=== PATIENT | female | born 1980 | race Caucasian/White ===

== ENCOUNTER 2023-07-25 16:04 | Emergency (ER) | payer OTHER, SELFPAY ==
[2023-07-25 16:07] VITALS: BP 173/78; PULSE 109; RESP 20; TEMP 36.2; O2SAT 98; BMI 36.2
[2023-07-25 16:49] LABS: Add Manual Diff / Slide Review NO; Basophils Absolute Auto 100 /uL (0-100); Basophils Percent Auto 0.9 % (0-2); Eosinophils Absolute Auto 0 /uL (0-450); Eosinophils Percent Auto 0.4 % (2-4); Hemoglobin 12.7 g/dL (12.0-16.0); Lymphocytes Absolute Auto 2800 /uL (1100-4500); Lymphocytes Percent Auto 28.3 % (25-40); Mean Corpuscular HGB Conc 33.3 % (30-36); Mean Corpuscular Hemoglobin 26.9 PG (26-34); Mean Corpuscular Volume 80.6 fL (80-100); Monocytes Absolute Auto 700 /uL (0-900); Monocytes Percent Auto 6.5 % (3-14); Neutrophils Absolute Auto 6400 /uL (1500-7000); Neutrophils Percent Auto 63.9 % (50-75); Platelet Count 457 X10^3/uL (150-400); Red Blood Cell Count 4.72 X10^6/uL (4.0-5.2); Red Cell Distribution Width 14.3 % (11.6-14.8)
[2023-07-25 16:51] LABS: Alanine Aminotransferase 68 IU/L (<35); Albumin 3.8 g/dL (3.5-5.0); Albumin Globulin Ratio 1.2 (1.0-2.8); Alkaline Phosphatase 131 U/L (38-126); Aspartate Aminotransferase 41 IU/L (14-36); BUN Creatinine Ratio 24.7 (6-22); Bilirubin Total 0.5 mg/dL (0.2-1.3); Blood Urea Nitrogen 19 mg/dL (7-17); Calcium 9.2 mg/dL (8.4-10.2); Carbon Dioxide 27 mmol/L (22-32); Chloride 102 mmol/L (98-107); Estimated Glomerular Filt Rate > 60 mL/min (>60); Globulin 3.3 g/dL (1.7-4.1); Glucose 110 mg/dL (70-100); HEMOLYSIS < 15 (0-50); Lipase 55 U/L (23-300); Potassium 3.9 mmol/L (3.4-5.1); Sodium 136 mmol/L (137-145); Total Protein 7.1 g/dL (6.3-8.2)
[2023-07-25] MEDS: KETOROLAC 30 MG/ML VIAL 15 MG IV (17:40)
--- NOTE | 2023-07-25 17:43 | DI.CT.S_ITS ---
PROCEDURE: CT ABDOMEN PELVIS W CON INDICATIONS: LUQ pain x 6 days, negative CT on 07/23 at [facility] TECHNIQUE: After the administration of intravenous contrast, axial sections acquired from the lung bases to the pubic symphysis. Coronal and sagittal reformats were performed. For radiation dose reduction, the following was used: automated exposure control, adjustment of mA and/or kV according to patient size. COMPARISON: CT chest angiogram 07/25/2023. FINDINGS: Image quality: Diagnostic. Lower Chest: Please see separately dictated CT chest angio obtained concurrently 07/25/2023 for thoracic findings. ABDOMEN: Liver: No solid mass. Gallbladder: Surgically absent Biliary ducts: No biliary dilation. Pancreas: No ductal dilation. Spleen: Size is within normal limits. Adrenal Glands: No adrenal nodules. Kidneys and Ureters: No hydronephrosis. No solid mass. No complex renal cystic lesion which requires follow up. Stomach and Bowel: Normal colonic caliber, without significant wall thickening. Peritoneum: No abnormal intraperitoneal fluid. No free air. Ventral Wall: Small fat containing periumbilical hernia Abdominal Nodes: No retroperitoneal or mesenteric adenopathy by size criteria. Vessels: Aorta and inferior vena cava are normal in size. PELVIS: Pelvic Organs: Irregular contour of the uterus, possibly related to fibroids. Bladder: Unremarkable. Pelvic Nodes: No enlarged lymph nodes. Miscellaneous: No inguinal hernias are seen. Bones: No acute or suspicious osseous abnormality. IMPRESSION: No acute process in the abdomen or pelvis to explain patient's symptoms. Approved by: Diane Alexis M.D. on 07/25/2023 at 20:07
--- NOTE | 2023-07-25 17:43 | DI.CT.S_ITS ---
PROCEDURE: CT ANGIO CHEST PE PROTOCOL INDICATIONS: LUQ pain, SOB, tachycardic, r/o PE TECHNIQUE: After the administration of intravenous contrast, 2 mm thick sections acquired from the pulmonary apices to the posterior costophrenic angles. 3-dimensional maximum intensity projection (MIP) coronal and sagittal reformats were then acquired through the thorax. For radiation dose reduction, the following was used: automated exposure control, adjustment of mA and/or kV according to patient size. COMPARISON: None. FINDINGS: Image quality: Diagnostic. Pulmonary arteries: Pulmonary arteries are normal in size, and demonstrate no intraluminal filling defects to suggest central pulmonary embolism. Lower Neck: No enlarged lymph nodes. Thyroid: No thyroid nodules which require sonographic follow up, per consensus guidelines. Axillae: No enlarged lymph nodes. Chest Wall: Unremarkable. Bones: Unremarkable. Lungs and Pleura: No pneumothorax or pleural effusions. No consolidation or suspicious nodules. Dependent atelectasis Heart: Heart size is normal. No pericardial effusion. Thoracic Vessels: No aortic aneurysm. Mediastinum and Mariann: No enlarged lymph nodes. Esophagus: No wall thickening. No hiatal hernia. Upper Abdomen: Visualized upper abdomen solid organs and bowel loops appear normal. IMPRESSION: No pulmonary embolus. No acute cardiopulmonary process. Approved by: Diane Alexis M.D. on 07/25/2023 at 19:56
--- NOTE | 2023-07-25 17:45 | ED.ABDPAIN ---
HPI - Abdominal Pain <Elenita Woody PA-C - Last Filed: 07/25/23 19:08> General Chief Complaint: Abdominal Pain Stated Complaint: lt side pain Time Seen by Provider: 07/25/23 19:06 Source: patient Mode of arrival: Ambulatory History of Present Illness HPI narrative: Patient is a 43-year-old female who presents with left upper quadrant pain x6 days. The pain is severe and sharp. It is worse when she takes a deep breath or if she sneezes, coughs or laughs. This is associated with profuse sweating without fever. She endorses nausea when the pain is severe, no vomiting, no diarrhea or constipation. No urinary symptoms. No history of DVT or PE. She does not take any hormones, no calf pain or swelling, no recent travel or immobilization, nonsmoker. Patient was seen at the [facility] ER on July 23. She had labs and a CT scan without any acute findings. She was discharged with pain medicine. The pain has not improved over time. She went to see her primary care today and they referred her to the emergency room. She does report a remote history of pancreatitis. This was after a cholecystectomy where a stone remained in the duct. Patient is currently in the middle of 7 days of p.o. doxycycline for upper respiratory infection. Related Data Home Medications Medication Instructions Recorded Confirmed ALBUTEROL SULFATE (Ventolin / 0 INH ##0 04/28/06 Proventil) Previous Rx's Medication Instructions Recorded dicyclomine 20 mg tablet 20 mg PO TID #60 tabs 07/25/23 famotidine 20 mg tablet (Pepcid) 20 mg PO BID #30 tabs 07/25/23 sucralfate 1 gram tablet (Carafate) 1 g PO BID #60 tabs 07/25/23 Allergies Allergy/AdvReac Type Severity Reaction Status Date / Time clarithromycin Allergy Unknown Verified 07/25/23 17:46 [CLARITHROMYCIN] gluten [GLUTEN] Allergy Unknown Verified 07/25/23 17:46 ibuprofen [IBUPROFEN] Allergy Unknown Verified 07/25/23 17:46 penicillin V [PENICILLIN V] Allergy Unknown HEADACHE Verified 07/25/23 17:46 sulfamethoxazole Allergy Unknown MASSIVE Verified 07/25/23 17:46 [From ] HEADACHES trimethoprim [From ] Allergy Unknown MASSIVE Verified 07/25/23 17:46 HEADACHES zolpidem [From AMBIEN] Allergy Unknown HALLICINATI Verified 07/25/23 17:46 ONS acetaminophen [From VICODIN] AdvReac Unknown PROJECTILE Verified 07/25/23 17:46 VOMITTING codeine [CODEINE] AdvReac Unknown PROJECTILE Verified 07/25/23 17:46 VOMITTING hydrocodone [From VICODIN] AdvReac Unknown PROJECTILE Verified 07/25/23 17:46 VOMITTING Review of Systems <Elenita Woody PA-C - Last Filed: 07/25/23 19:08> Review of Systems ROS Unobtainable: All systems reviewed & are unremarkable except as noted in HPI and below Exam <Elenita Woody PA-C - Last Filed: 07/25/23 19:08> Narrative Exam Narrative: GENERAL: 43 year old patient appears stated age. Well-developed patient, in significant distress. Writhing in pain, tachycardic, tachypneic. NEURO: AOx3. HEAD: Atraumatic. Normocephalic. EYES: Pupils equal round and reactive. Extraocular motions intact. No scleral icterus. No injection or drainage. ENT: Nose without bleeding or purulent drainage. Airway patent. NECK: Trachea midline. Non tender CARDIOVASCULAR: Tachycardic rate and normal rhythm without murmurs, gallops, or rubs. RESPIRATORY: Clear to auscultation. Breath sounds equal bilaterally. No wheezes, rales, or rhonchi. GASTROINTESTINAL: Abdomen soft, exquisite tenderness over left upper quadrant. Bilateral lower quadrants and right upper quadrant nontender. No significant distention. No skin rashes or ecchymosis. EXTREMITIES: No edema or joint tenderness. Calve are nontender and supple. There is no tenderness over the deep venous system in the lower extremities. SKIN: No rash or erythema of visible areas Initial Vital Signs Initial Vital Signs: Vital Signs Temperature 97.1 F L 07/25/23 16:07 Pulse Rate 109 H 07/25/23 16:07 Respiratory Rate 20 07/25/23 16:07 Blood Pressure 173/78 H 07/25/23 16:07 Pulse Oximetry 98 07/25/23 16:07 Oxygen Delivery Method Room Air 07/25/23 16:07 <Ellie Costa MD - Last Filed: 07/25/23 21:48> Initial Vital Signs Initial Vital Signs: Vital Signs Temperature 97.1 F L 07/25/23 16:07 Pulse Rate 109 H 07/25/23 16:07 Respiratory Rate 20 07/25/23 16:07 Blood Pressure 173/78 H 07/25/23 16:07 Pulse Oximetry 98 07/25/23 16:07 Oxygen Delivery Method Room Air 07/25/23 16:07 Scores <Elenita Woody PA-C - Last Filed: 07/25/23 19:08> Wells' Criteria for PE Clinical signs and symptoms of DVT: Yes PE is #1 Dx or equally likely: Yes Heart rate > 100: Yes Immobilization at least 3 days or surg in previous 4 weeks: No History of PE or DVT: No Hemoptysis: No Malignancy w/Treatment within 6 months or palliative: No Wells' PE Score total: 7.5 <Ellie Costa MD - Last Filed: 07/25/23 21:48> Wells' Criteria for PE Wells' PE Score total: 7.5 Course <Elenita Woody PA-C - Last Filed: 07/25/23 19:08> Orders Ordered: ED Orders 07/25/23 16:25 BNP [NT-proBNP (BNP-Adult 18+)] Stat Complete Blood Count AUTO DIFF Stat Comprehensive Metabolic Panel Stat Lipase Stat Troponin & CK Cardiac Panel Stat 07/25/23 17:43 CT abdomen pelvis w con Stat CT angio chest PE protocol Stat Discontinued Medications Sodium Chloride (Normal Saline 0.9%) 1,000 mls @ 1,000 mls/hr IV BOLUS ONE Stop: 07/25/23 18:42 Last Infusion: 07/25/23 19:30 Dose: Infused Documented By: Admin: 07/25/23 17:49 Dose: 1,000 mls/hr Documented By: HELENA Ketorolac Tromethamine (Ketorolac 30 Mg/Ml Vial) 15 mg IV NOW ONE Stop: 07/25/23 17:31 Last Admin: 07/25/23 17:40 Dose: 15 mg Documented By: HELENA Ondansetron HCl (Ondansetron 4 Mg/2 Ml Inj) 4 mg IV NOW PRN PRN Reason: Nausea And Vomiting Ondansetron HCl (Ondansetron 4 Mg Odt) 4 mg PO NOW PRN PRN Reason: Nausea And Vomiting Vital Signs Vital signs: Vital Signs - 8 hr 07/25/23 16:07 07/25/23 18:16 07/25/23 20:37 Temperature 97.1 F L Pulse Rate 109 H 83 85 Respiratory Rate 20 14 16 Blood Pressure 173/78 H 127/59 L 134/76 Pulse Oximetry 98 97 96 Oxygen Delivery Method Room Air Room Air <Ellie Costa MD - Last Filed: 07/25/23 21:48> Orders Ordered: ED Orders 07/25/23 16:25 BNP [NT-proBNP (BNP-Adult 18+)] Stat Complete Blood Count AUTO DIFF Stat Comprehensive Metabolic Panel Stat Lipase Stat Troponin & CK Cardiac Panel Stat 07/25/23 17:43 CT abdomen pelvis w con Stat CT angio chest PE protocol Stat Discontinued Medications Sodium Chloride (Normal Saline 0.9%) 1,000 mls @ 1,000 mls/hr IV BOLUS ONE Stop: 07/25/23 18:42 Last Infusion: 07/25/23 19:30 Dose: Infused Documented By: Admin: 07/25/23 17:49 Dose: 1,000 mls/hr Documented By: HELENA Ketorolac Tromethamine (Ketorolac 30 Mg/Ml Vial) 15 mg IV NOW ONE Stop: 07/25/23 17:31 Last Admin: 07/25/23 17:40 Dose: 15 mg Documented By: HELENA Ondansetron HCl (Ondansetron 4 Mg/2 Ml Inj) 4 mg IV NOW PRN PRN Reason: Nausea And Vomiting Ondansetron HCl (Ondansetron 4 Mg Odt) 4 mg PO NOW PRN PRN Reason: Nausea And Vomiting Vital Signs Vital signs: Vital Signs - 8 hr 07/25/23 16:07 07/25/23 18:16 07/25/23 20:37 Temperature 97.1 F L Pulse Rate 109 H 83 85 Respiratory Rate 20 14 16 Blood Pressure 173/78 H 127/59 L 134/76 Pulse Oximetry 98 97 96 Oxygen Delivery Method Room Air Room Air MDM - Abdominal Pain <Elenita Woody PA-C - Last Filed: 07/25/23 19:08> Lab Data 07/25/23 16:25 07/25/23 16:25 Labs: Lab Results 07/25/23 Range/Units 16:25 WBC 10.0 (4.5-11.0) X10^3/uL RBC 4.72 (4.0-5.2) X10^6/uL Hgb 12.7 (12.0-16.0) g/dL Hct 38.0 (36-46) % MCV 80.6 (80-100) fL MCH 26.9 (26-34) PG MCHC 33.3 (30-36) % RDW 14.3 (11.6-14.8) % Plt Count 457 H (150-400) X10^3/uL Neut % (Auto) 63.9 (50-75) % Lymph % (Auto) 28.3 (25-40) % [place] % (Auto) 6.5 (3-14) % Eos % (Auto) 0.4 L (2-4) % Baso % (Auto) 0.9 (0-2) % Neut # (Auto) 6400 (6976-1995) /uL Lymph # (Auto) 2800 (5520-8149) /uL [place] # (Auto) 700 (0-900) /uL Eos # (Auto) 0 (0-450) /uL Baso # (Auto) 100 (0-100) /uL Sodium 136 L (137-145) mmol/L Potassium 3.9 (3.4-5.1) mmol/L Chloride 102 (98-107) mmol/L Carbon Dioxide 27 (22-32) mmol/L BUN 19 H (7-17) mg/dL Creatinine 0.77 (0.52-1.04) mg/dL Estimated GFR > 60 (>60) mL/min BUN/Creatinine Ratio 24.7 H (6-22) Glucose 110 H (70-100) mg/dL Calcium 9.2 (8.4-10.2) mg/dL Total Bilirubin 0.5 (0.2-1.3) mg/dL AST 41 H (14-36) IU/L ALT 68 H (<35) IU/L Alkaline Phosphatase 131 H (38-126) U/L Total Creatine Kinase 37 (30-135) U/L Troponin I < 0.012 (0.01-0.034) ng/mL NT-Pro-B Natriuret Pep 45 (<125) pg/mL Total Protein 7.1 (6.3-8.2) g/dL Albumin 3.8 (3.5-5.0) g/dL Globulin 3.3 (1.7-4.1) g/dL Albumin/Globulin Ratio 1.2 (1.0-2.8) Lipase 55 (23-300) U/L Point of care testing: Point of Care Testing Test Results Negative Urine Dip Bedside Urine Glucose Negative Bedside Urine Bilirubin - Negative Bedside Urine Ketone - Negative Urine Specific [place] 1.020 Bedside Urine Occult Blood - Negative Bedside Urine pH 6.0 Bedside Urine Protein - Negative Bedside Urine Urobilinogen - Negative Bedside Urine Nitrite - Negative Bedside Urine Leukocytes - Negative Esterase MDM Narrative Medical decision making narrative: Multiple etiologies for patient's symptoms considered including, but not limited to: PE, colitis, pneumonia, pancreatitis, diverticulitis, splenic injury/abnormality, referred pain from other abdominal source, pyelonephritis Patient in significant pain. Patient is here with her daughter and she will need to drive her home, so declines opiate pain medications. Given Toradol and IV fluids in the emergency room. Patient remains tachycardic, tachypneic, diaphoretic and very uncomfortable during our visit. Given a recent unremarkable abd/pelvis CT scan with persistent symptoms and the vital sign changes I see before me, I can not fully exclude PE. Prior Charts reviewed: ED visit on 07/23/23 at [facility]; labs without significant abnl, mild leukocytosis. CT abd/pelvis without significant abnl, no diverticulitis or nephrolithiasis. Labs reviewed and interpreted by myself: from ED visit on 07/23/23 and today Consultations: Discussed case with Dr. Schwartz, who agrees with plan to obtain CTA chest and CT abd/pelvis. Labs show no clinically significant abnormality including a resolved leukocytosis, a normal troponin, normal lipase, normal UA. Mild elevation of LFTs noted with normal bilirubin. CTA chest and CT abdomen/pelvis interpretation pending at time of end of shift signout to Dr. Costa, who will continue care. <Ellie Costa MD - Last Filed: 07/25/23 21:48> Lab Data Labs: Lab Results 07/25/23 Range/Units 16:25 WBC 10.0 (4.5-11.0) X10^3/uL RBC 4.72 (4.0-5.2) X10^6/uL Hgb 12.7 (12.0-16.0) g/dL Hct 38.0 (36-46) % MCV 80.6 (80-100) fL MCH 26.9 (26-34) PG MCHC 33.3 (30-36) % RDW 14.3 (11.6-14.8) % Plt Count 457 H (150-400) X10^3/uL Neut % (Auto) 63.9 (50-75) % Lymph % (Auto) 28.3 (25-40) % [place] % (Auto) 6.5 (3-14) % Eos % (Auto) 0.4 L (2-4) % Baso % (Auto) 0.9 (0-2) % Neut # (Auto) 6400 (6061-6707) /uL Lymph # (Auto) 2800 (5917-1987) /uL [place] # (Auto) 700 (0-900) /uL Eos # (Auto) 0 (0-450) /uL Baso # (Auto) 100 (0-100) /uL Sodium 136 L (137-145) mmol/L Potassium 3.9 (3.4-5.1) mmol/L Chloride 102 (98-107) mmol/L Carbon Dioxide 27 (22-32) mmol/L BUN 19 H (7-17) mg/dL Creatinine 0.77 (0.52-1.04) mg/dL Estimated GFR > 60 (>60) mL/min BUN/Creatinine Ratio 24.7 H (6-22) Glucose 110 H (70-100) mg/dL Calcium 9.2 (8.4-10.2) mg/dL Total Bilirubin 0.5 (0.2-1.3) mg/dL AST 41 H (14-36) IU/L ALT 68 H (<35) IU/L Alkaline Phosphatase 131 H (38-126) U/L Total Creatine Kinase 37 (30-135) U/L Troponin I < 0.012 (0.01-0.034) ng/mL NT-Pro-B Natriuret Pep 45 (<125) pg/mL Total Protein 7.1 (6.3-8.2) g/dL Albumin 3.8 (3.5-5.0) g/dL Globulin 3.3 (1.7-4.1) g/dL Albumin/Globulin Ratio 1.2 (1.0-2.8) Lipase 55 (23-300) U/L Point of care testing: Point of Care Testing Test Results Negative Urine Dip Bedside Urine Glucose Negative Bedside Urine Bilirubin - Negative Bedside Urine Ketone - Negative Urine Specific [place] 1.020 Bedside Urine Occult Blood - Negative Bedside Urine pH 6.0 Bedside Urine Protein - Negative Bedside Urine Urobilinogen - Negative Bedside Urine Nitrite - Negative Bedside Urine Leukocytes - Negative Esterase MDM Narrative Medical decision making narrative: Multiple etiologies for patient's symptoms considered including, but not limited to: PE, colitis, pneumonia, pancreatitis, diverticulitis, splenic injury/abnormality, referred pain from other abdominal source, pyelonephritis Patient in significant pain. Patient is here with her daughter and she will need to drive her home, so declines opiate pain medications. Given Toradol and IV fluids in the emergency room. Patient remains tachycardic, tachypneic, diaphoretic and very uncomfortable during our visit. Given a recent unremarkable abd/pelvis CT scan with persistent symptoms and the vital sign changes I see before me, I can not fully exclude PE. Prior Charts reviewed: ED visit on 07/23/23 at [facility]; labs without significant abnl, mild leukocytosis. CT abd/pelvis without significant abnl, no diverticulitis or nephrolithiasis. Labs reviewed and interpreted by myself: from ED visit on 07/23/23 and today Consultations: Discussed case with Dr. Schwartz, who agrees with plan to obtain CTA chest and CT abd/pelvis. Labs show no clinically significant abnormality including a resolved leukocytosis, a normal troponin, normal lipase, normal UA. Mild elevation of LFTs noted with normal bilirubin. CTA chest and CT abdomen/pelvis interpretation pending at time of end of shift signout to Dr. Costa, who will continue care. Igor -CT angio and CT of the abdomen and pelvis are both negative for any acute pathology, no explanation for symptoms identified. Records from [facility] also reviewed from 07/23, patient had negative workup, discharged with Percocet for pain. I explained the results of all lab and imaging findings with the patient, I explained there was no obvious cause for her pain in the ER, and referred patient to General surgery for further discussion, if patient has upper quadrant pain that is severely she may benefit from endoscopy, this could be arranged to General surgery. In the meantime patient was counseled to avoid NSAIDs, alcohol, caffeine, acidic foods. Pepcid, Bentyl, Carafate sent to pharmacy of choice. Discharge Plan Departure Patient Disposition: Home Clinical Impression: Abdominal pain Instructions: DI for Abdominal Pain-Adult Prescriptions: New sucralfate [Carafate] 1 gram tablet 1 g PO BID Qty: 60 0RF dicyclomine 20 mg tablet 20 mg PO TID Qty: 60 0RF famotidine [Pepcid] 20 mg tablet 20 mg PO BID Qty: 30 0RF No Action ALBUTEROL SULFATE (Ventolin / Proventil) 0 INH Qty: 0 Referrals: Geoff Carrillo MD [Physician] - Provider,Kemi CARPENTER [Primary Care Provider] - Stand Alone Forms: Patient Portal/API
[2023-07-25] MEDS: SODIUM CHLORIDE 0.9% 1,000 ML 1000 ML IV (17:49)
[2023-07-25 17:59] LABS: Creatine Kinase 37 U/L (30-135)
[2023-07-25 18:12] LABS: NT-proBNP (BNP-Adult 18+) 45 pg/mL (<125); Troponin I < 0.012 ng/mL (0.01-0.034)
[2023-07-25 18:16] VITALS: BP 127/59; PULSE 83; RESP 14; O2SAT 97
[2023-07-25 20:37] VITALS: BP 134/76; PULSE 85; RESP 16; O2SAT 96
== END 2023-07-25 20:41 | disposition home or self-care (01) ==
PROVIDERS: Emergency Medicine; Physician Assistant; Emergency Provider Emergency Medicine
DX: R10.12 Left upper quadrant pain (principal); R00.0 Tachycardia, unspecified
CPT/HCPCS: 36415; 71275; 74177; 80053; 81003; 81025; 82550; 83690; 83880; 84484; 85025; 96361; 96374; 99284; J1885

== ENCOUNTER 2023-08-08 16:33 | Emergency (ER) | payer OTHER, SELFPAY ==
[2023-08-08 16:47] VITALS: BP 138/78; PULSE 99; RESP 16; TEMP 36.9; O2SAT 98; BMI 36.0
--- NOTE | 2023-08-08 17:26 | DI.RAD.S_ITS ---
PROCEDURE: XR CHEST 1V INDICATIONS: Shortness of breath TECHNIQUE: One view of the chest was acquired. COMPARISON: None. FINDINGS: Surgical changes and devices: None. Lungs and pleura: Lungs are clear. No pleural effusions or pneumothorax. Mediastinum: Mediastinal contours appear normal. Heart size is normal. Bones and chest wall: No suspicious bony lesions. Overlying soft tissues appear unremarkable. IMPRESSION: No acute cardiopulmonary pathology. Dictated by: Anjum Brizuela M.D. on 08/08/2023 at 18:07 Approved by: Anjum Brizuela M.D. on 08/08/2023 at 18:07
--- NOTE | 2023-08-08 19:12 | DI.CT.S_ITS ---
PROCEDURE: CT CHEST W CON INDICATIONS: Left parapneumonic chest pain TECHNIQUE: After the administration of intravenous contrast, 5 mm thick sections acquired from the pulmonary apices to the posterior costophrenic angles. 1 mm axial lung, 5 mm thick coronal and sagittal reformats and 7 mm axial MIP were acquired. For radiation dose reduction, the following was used: automated exposure control, adjustment of mA and/or kV according to patient size. COMPARISON: [facility], CT, CT ANGIO CHEST PE PROTOCOL, 07/25/2023, 18:01. FINDINGS: Image quality: Diagnostic. Lower Neck: No enlarged lymph nodes. Thyroid: No thyroid nodules which require sonographic follow up, per consensus guidelines. Axillae: No enlarged lymph nodes. Chest Wall: Unremarkable. Bones: Acute to subacute appearing minimally displaced left posterior lateral 4th through 7th rib fractures are seen with mild surrounding callus formation. Lungs and Pleura: No pneumothorax or pleural effusions. No consolidation or suspicious nodules. Heart: Heart size is normal. No pericardial effusion. Thoracic Vessels: The aorta and pulmonary arteries demonstrate normal size. Mediastinum and Mariann: No enlarged lymph nodes. Esophagus: No wall thickening. No hiatal hernia. Upper Abdomen: Visualized upper abdomen solid organs and bowel loops appear normal. Gallbladder is surgically absent. IMPRESSION: 1. Subacute appearing minimally displaced left posterior lateral 3rd through 7th rib fractures with callus formation. 2. Bilateral lungs are clear. No pleural effusion or pneumothorax. Airway is patent. 3. No mediastinal hematoma. No mediastinal or hilar lymphadenopathy. Dictated by: Anjum Brizuela M.D. on 08/08/2023 at 19:49 Approved by: Anjum Brizuela M.D. on 08/08/2023 at 19:52
--- NOTE | 2023-08-08 19:13 | ED_ITS ---
HPI - General Adult General Chief complaint: Shortness of Breath/Dyspnea Stated complaint: lung pain, difficulty breathing Time Seen by Provider: 08/08/23 18:12 Source: patient Mode of arrival: Family Vehicle History of Present Illness HPI narrative: 43-year-old woman who presents with continued persistent left-sided chest pain. She states that it started in the lower mid axillary line and has progressed up into the axilla and toward the neck and is getting worse. Medical history is for mild asthma, ADHD. The timeline of her symptoms is as follows: In April she was diagnosed with a bacterial pneumonia and admitted to [facility] for 5 days. Completed a course of antibiotics and seemingly improved In May she again developed coughing and fever was diagnosed with some type of virus that required droplet precaution during her 2nd 5 day stay for viral pneumonia complicated by bacterial infection. She continues to have significant fatigue, left-sided chest pain, she will have episodes where she all of a sudden breaks out into a sweat, she does not describe significant night sweats. She continues to have exertional dyspnea. She was seen her primary care physician at the [facility] at the end of June she had a CT scan of the abdomen and pelvis that was completely unremarkable. She had a CT chest angiogram that is specifically showed no lung parenchymal abnormalities, no pneumothorax, no pleural effusions, no pulmonary embolus, no mediastinal adenopathy, no chest wall abnormalities, no bony metastatic lesions, and no pericardial effusion. In follow up with her primary care physician she was referred to Gastroenterology and General surgery. She saw a general surgeon on [facility] yesterday who recommended repeating a CT scan of her chest and felt that this was a primary pulmonary problem. He told her to go to the emergency department if she was still having pain or dyspnea. She reports this evening reporting both. Related Data Home Medications Medication Instructions Recorded Confirmed ALBUTEROL SULFATE (Ventolin / 0 INH ##0 04/28/06 Proventil) Previous Rx's Medication Instructions Recorded dicyclomine 20 mg tablet 20 mg PO TID #60 tabs 07/25/23 famotidine 20 mg tablet (Pepcid) 20 mg PO BID #30 tabs 07/25/23 sucralfate 1 gram tablet (Carafate) 1 g PO BID #60 tabs 07/25/23 oxycodone-acetaminophen 5 mg-325 1 tab PO Q6H PRN pain #14 tabs 08/08/23 mg tablet oxycodone-acetaminophen 5 mg-325 1 tab PO Q6H PRN pain #14 tabs 08/08/23 mg tablet Allergies Allergy/AdvReac Type Severity Reaction Status Date / Time clarithromycin Allergy Unknown Verified 07/25/23 17:46 [CLARITHROMYCIN] gluten [GLUTEN] Allergy Unknown Verified 07/25/23 17:46 ibuprofen [IBUPROFEN] Allergy Unknown Verified 07/25/23 17:46 penicillin V [PENICILLIN V] Allergy Unknown HEADACHE Verified 07/25/23 17:46 sulfamethoxazole Allergy Unknown MASSIVE Verified 07/25/23 17:46 [From SEPTRA] HEADACHES trimethoprim [From SEPTRA] Allergy Unknown MASSIVE Verified 07/25/23 17:46 HEADACHES zolpidem [From AMBIEN] Allergy Unknown HALLICINATI Verified 07/25/23 17:46 ONS acetaminophen [From VICODIN] AdvReac Unknown PROJECTILE Verified 07/25/23 17:46 VOMITTING codeine [CODEINE] AdvReac Unknown PROJECTILE Verified 07/25/23 17:46 VOMITTING hydrocodone [From VICODIN] AdvReac Unknown PROJECTILE Verified 07/25/23 17:46 VOMITTING Review of Systems Review of Systems Narrative: Pertinent positive and negative findings as per HPI Patient History Medical History (Updated 08/08/23 @ 22:03 by Amie Barillas MD) Asthma Exam Initial Vital Signs Initial Vital Signs: Vital Signs Temperature 98.5 F 08/08/23 16:47 Pulse Rate 99 H 08/08/23 16:47 Respiratory Rate 16 08/08/23 16:47 Blood Pressure 138/78 08/08/23 16:47 Pulse Oximetry 98 08/08/23 16:47 Oxygen Delivery Method Room Air 08/08/23 16:47 General: Healthy appearing, in mild amount of pain but able to give a complete and coherent history. Well-nourished well-developed HEENT: Moist mucous membranes, normal sclera with reactive pupils, Neck: No JVD, supple Respiratory: Lungs are clear to auscultation, no wheezing no rales no rhonchi. Full and symmetrical air movement. She is reproducible pain with palpation along her left lateral ribs. No bruising or contusion over her thorax Cardiac: Regular rate and rhythm no murmurs no bruits Abdomen: Soft, nontender, good bowel tones, no flank pain Skin: Warm and dry, no rashes Neurologic: Grossly neurologically intact with no obvious asymmetries or abnormalities Extremities: No trauma, well perfused Psych: Cooperative, appropriate insight and affect Course Orders Ordered: ED Orders 08/08/23 17:26 XR chest 1V Stat EKG-12 Lead Stat Measure peak expiratory flow ONCE RT Consult Eval and Treat NOW 08/08/23 19:12 CT chest w con Stat 08/08/23 19:30 CRP [C-Reactive Protein Quant] Stat Complete Blood Count AUTO DIFF Stat Comprehensive Metabolic Panel Stat Erythrocyte Sedimentation Rate Stat Lactate (Lactic Acid) Stat NT-proBNP (BNP-Adult 18+) Stat Prothrombin Time INR Stat Troponin I Stat Discontinued Medications Dexamethasone (Dexamethasone 10 Mg/Ml Vial) 10 mg IV NOW ONE Stop: 08/08/23 19:14 Last Admin: 08/08/23 19:48 Dose: 10 mg Documented By: ASHWIN Ketorolac Tromethamine (Ketorolac 30 Mg/Ml Vial) 15 mg IV NOW ONE Stop: 08/08/23 19:14 Last Admin: 08/08/23 19:48 Dose: 15 mg Documented By: ASHWIN Vital Signs Vital signs: Vital Signs - 8 hr 08/08/23 16:47 Temperature 98.5 F Pulse Rate 99 H Respiratory Rate 16 Blood Pressure 138/78 Pulse Oximetry 98 Oxygen Delivery Method Room Air Medical Decision Making Lab Data 08/08/23 19:30 08/08/23 19:30 Labs: Lab Results 08/08/23 Range/Units 19:30 WBC 6.8 (4.5-11.0) X10^3/uL RBC 4.60 (4.0-5.2) X10^6/uL Hgb 12.5 (12.0-16.0) g/dL Hct 37.1 (36-46) % MCV 80.6 (80-100) fL MCH 27.1 (26-34) PG MCHC 33.6 (30-36) % RDW 14.4 (11.6-14.8) % Plt Count 406 H (150-400) X10^3/uL Neut % (Auto) 54.7 (50-75) % Lymph % (Auto) 35.2 (25-40) % [place] % (Auto) 9.0 (3-14) % Eos % (Auto) 0.3 L (2-4) % Baso % (Auto) 0.8 (0-2) % Neut # (Auto) 3700 (7833-8067) /uL Lymph # (Auto) 2400 (5904-5273) /uL [place] # (Auto) 600 (0-900) /uL Eos # (Auto) 0 (0-450) /uL Baso # (Auto) 100 (0-100) /uL ESR 20 (0-20) MM/HR PT 11.4 (9.4-12.5) SECONDS INR 1.0 (0.9-1.3) Sodium 137 (137-145) mmol/L Potassium 4.0 (3.4-5.1) mmol/L Chloride 103 (98-107) mmol/L Carbon Dioxide 24 (22-32) mmol/L BUN 19 H (7-17) mg/dL Creatinine 0.74 (0.52-1.04) mg/dL Estimated GFR > 60 (>60) mL/min BUN/Creatinine Ratio 25.7 H (6-22) Glucose 86 (70-100) mg/dL Lactate 1.1 (0.7-2.1) mmol/L Calcium 9.2 (8.4-10.2) mg/dL Total Bilirubin 0.4 (0.2-1.3) mg/dL AST 21 (14-36) IU/L ALT 22 (<35) IU/L Alkaline Phosphatase 90 (38-126) U/L Troponin I < 0.012 (0.01-0.034) ng/mL C-Reactive Protein 0.7 (<1.0) mg/dL NT-Pro-B Natriuret Pep < 20 (<125) pg/mL Total Protein 7.3 (6.3-8.2) g/dL Albumin 4.0 (3.5-5.0) g/dL Globulin 3.3 (1.7-4.1) g/dL Albumin/Globulin Ratio 1.2 (1.0-2.8) MDM Narrative Medical decision making narrative: CC: Left-sided chest pain worsening. Complicating co-morbidities:Hospitalization for pneumonia April and May of this year Data collected from: patient Medical records reviewed: Patient's detailed timeline extraordinarily helpful. Imaging studies CT of the abdomen and pelvis as well as CT angiogram of the chest that were both done and unremarkable on July 25 of this year. Differential considered: Pleurisy, pulmonary infarct, recurrent pneumonia, pneumothorax, referred pain from her abdomen, Exam documented above, pertinent findings include: Tenderness over the left lateral ribs reproducible with palpation. No other significant abnormalities. Lab Test results independently reviewed as above. Pertinent findings: CBC is unremarkable, platelets slightly elevated at 406 Chemistries are reassuring with no electrolyte, renal or liver abnormalities Troponin is undetectable ProBNP is low suggesting absence of heart failure C-reactive protein is low suggesting absence of significant chronic or active infection Imaging studies independently reviewed: CT scan of the chest with contrast today shows subacute minimally displaced left posterior lateral 3 through 7th rib fractures with callus formation. No acute cardiopulmonary abnormalities. No pulmonary infarct. No recurrent infection Consultations: Outpatient general surgery with appointment yesterday, he was concerned with clinical exam finding and recommended CT of the chest if her breathing worsened Treatments: Toradol, Decadron Re-evaluations: Patient is feeling better after Toradol and dexamethasone Discussion: 43-year-old woman with CT scan showing posterior left ribs 3 through 7 with healing fractures. This absolutely corresponds with her area of pain. Presumably the cough from her recent upper respiratory infections were the source she reports no trauma. She is dramatically relieved to know that there is an explanation, that she does not have cancer and that she will improve. Reviewed the rest of the studies. Also reviewed anticipated course of resolution for rib fractures. Discussed pain management, please see notes below for details. Questions are answered and she is safe for discharge Discharge Plan Departure Patient Disposition: Home Clinical Impression: Fracture, ribs Qualifiers: Encounter type: initial encounter Fracture type: closed Laterality: left Q ualified Code(s): S22.42XA - Multiple fractures of ribs, left side, initial encounter for closed fracture Instructions: DI for Rib Fracture Activity Restrictions/Additional Instructions: Thank you for coming in today I am glad to let you know that you are not crazy, you do not have cancer, you are not dying, you do not have areas of your lung or blood clots in your lung, you do not have any recurrent pneumonia You apparently were coughing hard enough that you broke 5 ribs. Ribs 3, 4, 5, 6, 7 on the left side all where your hurting show healing nondisplaced fractures. Using 400 mg of ibuprofen (2 [id number] pills) and 1 Tylenol every 6 hours can be very helpful in controlling pain. For severe pain you can use 400 mg of ibuprofen and 1 Percocet. Percocet is a narcotic and you should not take it while working or driving. He will also cause constipation so please make sure that you miner pick a stool softener while you are picking up this medication. Rib fractures we will typically take 6-8 weeks to heal completely. If you find that you are getting worse or develop any new symptoms, please feel free to return to the emergency department for further evaluation. Prescriptions: New oxycodone-acetaminophen 5-325 mg tablet 1 tab PO Q6H PRN (Reason: pain) Qty: 14 0RF oxycodone-acetaminophen 5-325 mg tablet 1 tab PO Q6H PRN (Reason: pain) Qty: 14 0RF No Action ALBUTEROL SULFATE (Ventolin / Proventil) 0 INH Qty: 0 sucralfate [Carafate] 1 gram tablet 1 g PO BID Qty: 60 0RF dicyclomine 20 mg tablet 20 mg PO TID Qty: 60 0RF famotidine [Pepcid] 20 mg tablet 20 mg PO BID Qty: 30 0RF Referrals: Nathaniel Rahman MD [Primary Care Provider] - Stand Alone Forms: Patient Portal/API
[2023-08-08 19:36] LABS: Add Manual Diff / Slide Review NO; Basophils Absolute Auto 100 /uL (0-100); Basophils Percent Auto 0.8 % (0-2); Eosinophils Absolute Auto 0 /uL (0-450); Eosinophils Percent Auto 0.3 % (2-4); Hematocrit 37.1 % (36-46); Hemoglobin 12.5 g/dL (12.0-16.0); Lymphocytes Absolute Auto 2400 /uL (1100-4500); Lymphocytes Percent Auto 35.2 % (25-40); Mean Corpuscular HGB Conc 33.6 % (30-36); Mean Corpuscular Hemoglobin 27.1 PG (26-34); Mean Corpuscular Volume 80.6 fL (80-100); Monocytes Absolute Auto 600 /uL (0-900); Neutrophils Absolute Auto 3700 /uL (1500-7000); Neutrophils Percent Auto 54.7 % (50-75); Platelet Count 406 X10^3/uL (150-400); Red Cell Distribution Width 14.4 % (11.6-14.8); White Blood Cell Count 6.8 X10^3/uL (4.5-11.0)
[2023-08-08 19:45] LABS: Prothrombin Time 11.4 SECONDS (9.4-12.5)
[2023-08-08] MEDS: DEXAMETHASONE 10 MG/ML VIAL IV (19:48)
[2023-08-08] MEDS: KETOROLAC 30 MG/ML VIAL 15 MG IV (19:48)
[2023-08-08 19:51] LABS: Lactate (Lactic Acid) 1.1 mmol/L (0.7-2.1)
[2023-08-08 19:52] LABS: Alanine Aminotransferase 22 IU/L (<35); Albumin Globulin Ratio 1.2 (1.0-2.8); Alkaline Phosphatase 90 U/L (38-126); Aspartate Aminotransferase 21 IU/L (14-36); BUN Creatinine Ratio 25.7 (6-22); Bilirubin Total 0.4 mg/dL (0.2-1.3); Blood Urea Nitrogen 19 mg/dL (7-17); Calcium 9.2 mg/dL (8.4-10.2); Carbon Dioxide 24 mmol/L (22-32); Chloride 103 mmol/L (98-107); Estimated Glomerular Filt Rate > 60 mL/min (>60); Globulin 3.3 g/dL (1.7-4.1); Glucose 86 mg/dL (70-100); HEMOLYSIS < 15 (0-50); Sodium 137 mmol/L (137-145); Total Protein 7.3 g/dL (6.3-8.2)
[2023-08-08 20:04] LABS: NT-proBNP (BNP-Adult 18+) < 20 pg/mL (<125); Troponin I < 0.012 ng/mL (0.01-0.034)
[2023-08-08 20:08] LABS: Erythrocyte Sedimentation Rate 20 MM/HR (0-20)
[2023-08-08 20:14] LABS: C-Reactive Protein Quant 0.7 mg/dL (<1.0)
[2023-08-08 22:11] VITALS: PULSE 87; RESP 19; O2SAT 95
[2023-08-08 22:12] VITALS: BP 145/82; PULSE 88; RESP 18; O2SAT 97
[2023-08-08 22:30] VITALS: BP 145/82; PULSE 92; RESP 22; O2SAT 95
[2023-08-08] MEDS: OXYCODONE/APAP 5/325 PREPACK 1 BOTTLE MISC (22:34)
== END 2023-08-08 22:47 | disposition home or self-care (01) ==
PROVIDERS: Emergency Medicine; Emergency Provider Emergency Medicine; PCP Surgery
DX: S22.42XA Multiple fractures of ribs, left side, initial encounter for closed fracture (principal)
CPT/HCPCS: 36415; 71045; 71260; 80053; 83605; 83880; 84484; 85025; 85610; 85651; 86140; 96374; 96375; 99284; J1100; J1885

== ENCOUNTER 2023-08-19 13:07 | Emergency (ER) | payer OTHER, SELFPAY ==
[2023-08-19 13:12] VITALS: BP 146/81; PULSE 99; RESP 18; TEMP 36.5; O2SAT 96; BMI 36.2
--- NOTE | 2023-08-19 13:59 | DI.RAD.S_ITS ---
PROCEDURE: XR CHEST 2V INDICATIONS: cough, prior L rib fx 2-7 TECHNIQUE: 2 views of the chest were acquired. COMPARISON: [facility], CR, XR CHEST 1V, 08/08/2023, 17:54. [facility], CT, CT CHEST W CON, 08/08/2023, 19:40. FINDINGS: Surgical changes and devices: None. Lungs and pleura: An incomplete inspiratory result is noted, causing a crowded appearance to the lung markings. No focal infiltrates are seen. No pneumothorax or significant pleural effusions are seen. Mediastinum: Mediastinal contours are normal. Heart size is normal. Bones and chest wall: Several healing left-sided rib fractures are again seen. No suspicious bony abnormalities. Soft tissues appear unremarkable. IMPRESSION: Healing left-sided rib fractures are again seen. No focal infiltrates are seen. No pneumothorax is seen. If it would be helpful for clinical management decision making in this patient with this given history, please consider a dedicated chest CT with IV contrast. Dictated by: Ismael Keith M.D. on 08/19/2023 at 14:57 Approved by: Ismael Keith M.D. on 08/19/2023 at 14:58
[2023-08-19] MEDS: LIDOCAINE 5% PATCH 1 EACH TOP (14:11)
--- NOTE | 2023-08-19 14:24 | PC.NURSE ---
Notified provider that patient symptoms appeared to worsen with light touch on the skin when applying lidocaine patch.
[2023-08-19] MEDS: IBUPROFEN 400 MG TABLET 600 MG PO (15:12)
[2023-08-19] MEDS: OXYCODONE/ACETAMINOPHEN 5/325 TABLET 1 TAB PO (15:12)
--- NOTE | 2023-08-19 16:16 | ED_ITS ---
HPI - Recheck/Abnormal Lab/Rx <Lara Mark PA-C - Last Filed: 08/19/23 18:33> General Chief Complaint: Recheck/Abnormal Lab/Rx Stated Complaint: 5 broken ribs, coughing fit lots of pain Time Seen by Provider: 08/19/23 13:16 History of Present Illness HPI narrative: 43-year-old female here today for left-sided rib pain that she believes is associated with previously diagnosed rib fractures of ribs 3 through 7. She had 2 different cases of pneumonia in April and May which resulted in her being hospitalized. After those episode she continued to have coughing spells and respiratory difficulties for which she was seen in various locations. She ultimately ended up being seen here on 08/[address] scan of her chest done which showed subacute fractures of ribs 3 through 7. This was presumed to be from all her coughing spells and since her main complaint at that time was ongoing left-sided chest wall pain she was prescribed 14 tablets of Percocet to help with the pain. Patient states that she was taking Percocet and Motrin in the morning in the evening and this was really helping. States that her cough and respiratory symptoms have been gone for several weeks now but in the middle of the night a few days ago she had a coughing spell that caused her to injure her left side again. States that the pain has been unbearable since then and she can barely breathe, move, or even swallow due to the significant pain. It is in the same location as her rib fractures so she thinks she re-injured the ribs again. She went to urgent care and they gave her a shot of Toradol which did not help. She also has a prescription of tramadol from the [facility] that she was given in early July but that does not help either. She would like a chest x-ray to see if she cause any new breaks in the ribs. She denies any shortness of breath, wheezing, cough, chest pain Related Data Home Medications Medication Instructions Recorded Confirmed ALBUTEROL SULFATE (Ventolin / 0 INH ##0 04/28/06 Proventil) Previous Rx's Medication Instructions Recorded dicyclomine 20 mg tablet 20 mg PO TID #60 tabs 07/25/23 famotidine 20 mg tablet (Pepcid) 20 mg PO BID #30 tabs 07/25/23 sucralfate 1 gram tablet (Carafate) 1 g PO BID #60 tabs 07/25/23 oxycodone-acetaminophen 5 mg-325 1 tab PO Q6H PRN pain #14 tabs 08/08/23 mg tablet oxycodone-acetaminophen 5 mg-325 1 tab PO Q6H PRN pain #14 tabs 08/08/23 mg tablet lidocaine 5 % topical patch 1 patch topical DAILY PRN pain, 08/19/23 moderate #30 ea oxycodone-acetaminophen 5 mg-325 1 tab PO BID PRN pain, severe #14 08/19/23 mg tablet (Percocet) tabs Allergies Allergy/AdvReac Type Severity Reaction Status Date / Time clarithromycin Allergy Unknown Verified 07/25/23 17:46 [CLARITHROMYCIN] gluten [GLUTEN] Allergy Unknown Verified 08/19/23 13:16 penicillin V [PENICILLIN V] Allergy Unknown HEADACHE Verified 08/19/23 13:16 sulfamethoxazole Allergy Unknown MASSIVE Verified 08/19/23 13:16 [From SEPTRA] HEADACHES trimethoprim [From SEPTRA] Allergy Unknown MASSIVE Verified 08/19/23 13:16 HEADACHES zolpidem [From AMBIEN] Allergy Unknown HALLICINATI Verified 08/19/23 13:16 ONS codeine [CODEINE] AdvReac Unknown PROJECTILE Verified 08/19/23 13:16 VOMITTING hydrocodone [From VICODIN] AdvReac Unknown PROJECTILE Verified 08/19/23 13:16 VOMITTING Review of Systems <Lara Mark PA-C - Last Filed: 08/19/23 18:33> Review of Systems ROS Unobtainable: All systems reviewed & are unremarkable except as noted in HPI and below Patient History <Lara Mark PA-C - Last Filed: 08/19/23 18:33> Medical History (Updated 08/19/23 @ 16:47 by Lara Mark PA-C) Asthma Social History Smoking Status: Former smoker Smoking Status: Former smoker tobacco type: cigarettes and vaping alcohol intake frequency: holidays/special occasions only Substance Use Type: does not use Exam <Lara Mark PA-C - Last Filed: 08/19/23 18:33> Narrative Exam Narrative: GENERAL: Well-developed, well-nourished, appears stated age. Patient tearful, visibly uncomfortable, wincing in pain HEAD: Atraumatic. Normocephalic. EYES: Pupils equal round and reactive. Extraocular motions intact. No scleral icterus. No injection or drainage. ENT: Nose without bleeding, purulent drainage. Airway patent. NECK: Trachea midline. Non tender RESPIRATORY: Respiratory rate and effort normal. Extreme tenderness and sensitivity to the left chest wall with even very light contact. Tenderness is generalized and not in anyone specific location. There is no rash, lesions, swelling or bruising EXTREMITIES: No edema or joint tenderness. NEURO: AOx3. SKIN: No rash or erythema of visible areas Initial Vital Signs Initial Vital Signs: Vital Signs Temperature 97.7 F 08/19/23 13:12 Pulse Rate 99 H 08/19/23 13:12 Respiratory Rate 18 08/19/23 13:12 Blood Pressure 146/81 H 08/19/23 13:12 Pulse Oximetry 96 08/19/23 13:12 Oxygen Delivery Method Room Air 08/19/23 13:12 <Amie Barillas MD - Last Filed: 08/20/23 07:24> Initial Vital Signs Initial Vital Signs: Vital Signs Temperature 97.7 F 08/19/23 13:12 Pulse Rate 99 H 08/19/23 13:12 Respiratory Rate 18 08/19/23 13:12 Blood Pressure 146/81 H 08/19/23 13:12 Pulse Oximetry 96 08/19/23 13:12 Oxygen Delivery Method Room Air 08/19/23 13:12 Course <Lara Mark PA-C - Last Filed: 08/19/23 18:33> Orders Ordered: Discontinued Medications Ibuprofen (Ibuprofen 400 Mg Tablet) 600 mg PO NOW ONE Stop: 08/19/23 14:50 Last Admin: 08/19/23 15:12 Dose: 600 mg Documented By: MAVIS Lidocaine (Lidocaine 5% Patch) 1 each TOP NOW ONE Stop: 08/19/23 14:00 Last Admin: 08/19/23 14:11 Dose: 1 each Documented By: MAVIS Oxycodone/Acetaminophen (Oxycodone/Acetaminophen 5/325 Tablet) 1 tab PO NOW ONE Stop: 08/19/23 14:50 Last Admin: 08/19/23 15:12 Dose: 1 tab Documented By: RL Vital Signs Vital signs: Vital Signs - 8 hr 08/19/23 13:12 08/19/23 16:53 Temperature 97.7 F 98.3 F Pulse Rate 99 H 97 H Respiratory Rate 18 20 Blood Pressure 146/81 H 132/81 Pulse Oximetry 96 97 Oxygen Delivery Method Room Air Room Air <Amie Barillas MD - Last Filed: 08/20/23 07:24> Orders Ordered: Discontinued Medications Ibuprofen (Ibuprofen 400 Mg Tablet) 600 mg PO NOW ONE Stop: 08/19/23 14:50 Last Admin: 08/19/23 15:12 Dose: 600 mg Documented By: RL Lidocaine (Lidocaine 5% Patch) 1 each TOP NOW ONE Stop: 08/19/23 14:00 Last Admin: 08/19/23 14:11 Dose: 1 each Documented By: MAVIS Oxycodone/Acetaminophen (Oxycodone/Acetaminophen 5/325 Tablet) 1 tab PO NOW ONE Stop: 08/19/23 14:50 Last Admin: 08/19/23 15:12 Dose: 1 tab Documented By: MAVIS Vital Signs Vital signs: Vital Signs - 8 hr 08/19/23 13:12 08/19/23 16:53 Temperature 97.7 F 98.3 F Pulse Rate 99 H 97 H Respiratory Rate 18 20 Blood Pressure 146/81 H 132/81 Pulse Oximetry 96 97 Oxygen Delivery Method Room Air Room Air MDM - Recheck/Abnormal Lab/Rx <Lara Mark PA-C - Last Filed: 08/19/23 18:33> Imaging Data Chest x-ray: Radiologist's Impression: [address] [address] XRay Report Signed Patient: Azam Christian MR#: [id number] : 1980 Acct:[id number] Age/Sex: 43 / F Date of Service: 08/19/23 Loc: ED Accession Number: [id number] Procedure: XR chest 2V Ordering Provider: Lara Mark P.A-C PROCEDURE: XR CHEST 2V INDICATIONS: cough, prior L rib fx 2-7 TECHNIQUE: 2 views of the chest were acquired. COMPARISON: [facility], [place], XR CHEST 1V, 08/08/2023, 17:54. [facility], CT, CT CHEST W CON, 08/08/2023, 19:40. FINDINGS: Surgical changes and devices: None. Lungs and pleura: An incomplete inspiratory result is noted, causing a crowded appearance to the lung markings. No focal infiltrates are seen. No pneumothorax or significant pleural effusions are seen. Mediastinum: Mediastinal contours are normal. Heart size is normal. Bones and chest wall: Several healing left-sided rib fractures are again seen. No suspicious bony abnormalities. Soft tissues appear unremarkable. IMPRESSION: Healing left-sided rib fractures are again seen. No focal infiltrates are seen. No pneumothorax is seen. If it would be helpful for clinical management decision making in this patient with this given history, please consider a dedicated chest CT with IV contrast. Dictated by: Ismael Keith M.D. on 08/19/2023 at 14:57 Approved by: Ismael Keith M.D. on 08/19/2023 at 14:58 MDM Narrative Medical decision making narrative: Patient has an interesting history involving several respiratory illnesses and prolonged coughing for several months that apparently resulted in 5 rib fractures which were diagnosed on August 08 here in this ED by chest CT. At the time of the chest CT the rib fractures were a subacute and had callus formation to the exact age of the fracture is unknown. Patient was prescribed 14 tablets of Percocet and felt that her condition was improving significantly when taking that twice daily along with Motrin. However she states her allergies acting up the other night and she had a significant coughing spell which resulted in her re-injuring or aggravating the left ribs all over again. States she feels she is back at sq 1 and she is now out of Percocet. She was given Toradol at an urgent care which did not help. She has tramadol at home from early July that does not help either. She is mainly concerned about whether she broke her ribs again or caused a new injury so a chest x-ray was done which showed healing rib fractures but nothing acute. She has no ongoing respiratory symptoms at this time. She is very tearful and anxious regarding her pain. When applying lidocaine patch patient had significant reaction to even the lightest brushing against or touching of the left chest wall. She was given Percocet, Motrin and a lidocaine patch here in the ED and when I rechecked her an hour later she was feeling significantly better. Discussed with Dr. Barillas who is the 1 who saw her on August 08 when the rib fractures were discovered. She agreed it would be reasonable to provide another short course of Percocet since the patient seems to have re-injured the area, does not appear to have obtained narcotics elsewhere in the recent weeks, and has only taken 1 week of the Percocet total so far. Will provide patient with 14 more tablets but discussed with her that she would not be receiving more after this and it is highly recommended that she follow up with her PCP to discuss pain management plan going forward. Patient understands and agrees with plan Prior Charts reviewed: Prior ED visit from July 25 and August 08 Imaging reviewed: Prior chest CT as well as today's chest x-ray Consultations: Dr Barillas Patient's symptoms improved over duration of stay with above-stated therapies. Findings and discharge diagnosis discussed with patient/family followed by verbalization of understanding Return precautions discussed with patient/family whom verbalize understanding of diagnosis and plan Discharge Plan Departure Patient Disposition: Home Clinical Impression: Rib pain on left side Activity Restrictions/Additional Instructions: You were for left-sided rib pain related to your 5 rib fractures that were diagnosed earlier this month. Based on your history and exam it sounds like you caused some new aggravation to the area from your recent coughing fit. Your chest x-ray today showed no new rib fractures or other lung problems. Today you are being prescribed 14 tablets of Percocet. We have the risks associated with narcotics and the fact that this is only a medication to be used for a short period of time. Please only use this medication for severe pain and use ibuprofen or Tylenol for less severe pain. If you continue to have pain that is not relieved by ibuprofen or Tylenol after your prescription for Percocet runs out you need to follow up with your primary care physician to discuss the next step as we will not be prescribing more narcotics in this emergency room. Please use the lidocaine patches as needed for pain as well and continue using your spirometry device at home. Thank you for choosing us to care for you today. Prescriptions: New oxycodone-acetaminophen [Percocet] 5-325 mg tablet 1 tab PO BID PRN (Reason: pain, severe) Qty: 14 0RF lidocaine 5 % adhesive patch,medicated 1 patch topical DAILY PRN (Reason: pain, moderate) Qty: 30 0RF Rx Instructions: leave on most painful area for up to 12 hrs No Action ALBUTEROL SULFATE (Ventolin / Proventil) 0 INH Qty: 0 oxycodone-acetaminophen 5-325 mg tablet 1 tab PO Q6H PRN (Reason: pain) Qty: 14 0RF oxycodone-acetaminophen 5-325 mg tablet 1 tab PO Q6H PRN (Reason: pain) Qty: 14 0RF sucralfate [Carafate] 1 gram tablet 1 g PO BID Qty: 60 0RF dicyclomine 20 mg tablet 20 mg PO TID Qty: 60 0RF famotidine [Pepcid] 20 mg tablet 20 mg PO BID Qty: 30 0RF Referrals: Nathaniel Rahman MD [Primary Care Provider] - Stand Alone Forms: Patient Portal/API ED Sign-out <Amie Barillas MD - Last Filed: 08/20/23 07:24> Cosign ED Attending Cosignature Attestation: I was immediately available in the department for consultation throughout this patient's visit. Amie Barillas MD
[2023-08-19 16:53] VITALS: BP 132/81; PULSE 97; RESP 20; TEMP 36.8; O2SAT 97
== END 2023-08-19 16:56 | disposition home or self-care (01) ==
PROVIDERS: Emergency Provider Physician Assistant; PCP Surgery
DX: R07.81 Pleurodynia (principal)
CPT/HCPCS: 71046; 99283; 99284

== ENCOUNTER 2023-10-17 13:36 | Emergency (ER) | payer OTHER, SELFPAY ==
[2023-10-17 13:42] VITALS: BP 141/79; PULSE 85; RESP 18; TEMP 36.6; O2SAT 99; BMI 36.6
--- NOTE | 2023-10-17 13:49 | DI.RAD.S_ITS ---
PROCEDURE: XR RIBS LT MIN 3V W CXR1V INDICATIONS: chest pain TECHNIQUE: 3 views of the ribs were acquired, along with a single view chest. COMPARISON: None. FINDINGS: Surgical changes and devices: Cholecystectomy clips. Bones and chest wall: Multiple rib fractures with callus formation involving the left posterolateral 3rd, 4th, 5th, 6th, 7th and 8th ribs. No suspicious bony lesions. Overlying soft tissues appear unremarkable. Lungs and pleura: No pleural effusions or pneumothorax. Lungs appear clear. Mediastinum: Mediastinal contours appear normal. Heart size is normal. IMPRESSION: 1. Multiple rib fractures with callus formation involving the left 3rd through 8th ribs. Findings are suggestive of subacute versus chronic fractures. Correlate for point tenderness. 2. No pneumothorax or acute cardiopulmonary process. Dictated by: Naif Wilks M.D. on 10/17/2023 at 14:42 Approved by: Naif Wilks M.D. on 10/17/2023 at 14:44
--- NOTE | 2023-10-17 14:56 | ED.CHESTPAIN ---
HPI - Chest Pain General Chief Complaint: Chest Pain Stated Complaint: poss rib fracture Time Seen by Provider: 10/17/23 14:56 Source: patient Mode of arrival: Ambulatory Limitations: no limitations History of Present Illness HPI narrative: 43-year-old history with a history for ADHD, asthma, multiple left-sided rib fractures from coughing found in July presents after returning to the gym 3 days ago, trying a gentle jog and finding that she is having significant left-sided chest pain reminiscent of the previous rib fractures. She is concerned that she may have re-injured the fracture sites. She has not reporting fever, she is trying very hard not to cough because it tends to hurt, no nausea, vomiting, diarrhea. No recent trauma. Related Data Home Medications Medication Instructions Recorded Confirmed ALBUTEROL SULFATE (Ventolin / 0 INH ##0 04/28/06 Proventil) Previous Rx's Medication Instructions Recorded dicyclomine 20 mg tablet 20 mg PO TID #60 tabs 07/25/23 famotidine 20 mg tablet (Pepcid) 20 mg PO BID #30 tabs 07/25/23 sucralfate 1 gram tablet (Carafate) 1 g PO BID #60 tabs 07/25/23 oxycodone-acetaminophen 5 mg-325 1 tab PO Q6H PRN pain #14 tabs 08/08/23 mg tablet oxycodone-acetaminophen 5 mg-325 1 tab PO Q6H PRN pain #14 tabs 08/08/23 mg tablet lidocaine 5 % topical patch 1 patch topical DAILY PRN pain, 08/19/23 moderate #30 ea oxycodone-acetaminophen 5 mg-325 1 tab PO BID PRN pain, severe #14 08/19/23 mg tablet (Percocet) tabs oxycodone-acetaminophen 5 mg-325 1 tab PO Q6H PRN pain #14 tabs 10/17/23 mg tablet Allergies Allergy/AdvReac Type Severity Reaction Status Date / Time clarithromycin Allergy Unknown Verified 07/25/23 17:46 [CLARITHROMYCIN] gluten [GLUTEN] Allergy Unknown Verified 08/19/23 13:16 penicillin V [PENICILLIN V] Allergy Unknown HEADACHE Verified 08/19/23 13:16 sulfamethoxazole Allergy Unknown MASSIVE Verified 08/19/23 13:16 [From ] HEADACHES trimethoprim [From ] Allergy Unknown MASSIVE Verified 08/19/23 13:16 HEADACHES zolpidem [From AMBIEN] Allergy Unknown HALLICINATI Verified 08/19/23 13:16 ONS codeine [CODEINE] AdvReac Unknown PROJECTILE Verified 08/19/23 13:16 VOMITTING hydrocodone [From VICODIN] AdvReac Unknown PROJECTILE Verified 08/19/23 13:16 VOMITTING Review of Systems Review of Systems Narrative: Pertinent positive and negative findings as per HPI Patient History Medical History Asthma Social History Smoking Status: Former smoker Smoking Status: Former smoker tobacco type: cigarettes and vaping alcohol intake frequency: holidays/special occasions only Substance Use Type: does not use Exam Initial Vital Signs Initial Vital Signs: Vital Signs Temperature 98 F 10/17/23 13:42 Pulse Rate 85 10/17/23 13:42 Respiratory Rate 18 10/17/23 13:42 Blood Pressure 141/79 H 10/17/23 13:42 Pulse Oximetry 99 10/17/23 13:42 Oxygen Delivery Method Room Air 10/17/23 13:42 General: Healthy appearing, in no acute distress. Able to give a complete and coherent history. Well-nourished well-developed HEENT: Moist mucous membranes, normal sclera with reactive pupils, Neck: No JVD, supple Respiratory: Lungs are clear to auscultation, she does have tenderness over the left posterior ribs without bruising or contusion. Tenderness is easily reproducible with gentle palpation. Cardiac: Regular rate and rhythm no murmurs no bruits Abdomen: Soft, nontender, good bowel tones, no flank pain Skin: Warm and dry, no rashes Extremities: No trauma, well perfused Psych: Cooperative, appropriate insight and affect Course Orders Ordered: ED Orders 10/17/23 13:49 XR ribs LT min 3V w CXR1V Stat EKG-12 Lead Stat 10/17/23 14:56 Complete Blood Count AUTO DIFF Stat Comprehensive Metabolic Panel Stat Lipase Stat Magnesium Stat PTT Partial Thromboplastin Nathan Stat Prothrombin Time INR Stat Troponin & CK Cardiac Panel Stat Discontinued Medications Aspirin (Aspirin 81 Mg Chew Tab) 324 mg PO NOW ONE Stop: 10/17/23 13:50 Vital Signs Vital signs: Vital Signs - 8 hr 10/17/23 13:42 Temperature 98 F Pulse Rate 85 Respiratory Rate 18 Blood Pressure 141/79 H Pulse Oximetry 99 Oxygen Delivery Method Room Air MDM - Chest Pain Lab Data 10/17/23 14:56 10/17/23 14:56 Labs: Lab Results 10/17/23 Range/Units 14:56 WBC 7.1 (4.5-11.0) X10^3/uL RBC 4.86 (4.0-5.2) X10^6/uL Hgb 13.6 (12.0-16.0) g/dL Hct 40.1 (36-46) % MCV 82.5 (80-100) fL MCH 27.9 (26-34) PG MCHC 33.8 (30-36) % RDW 14.6 (11.6-14.8) % Plt Count 425 H (150-400) X10^3/uL Neut % (Auto) 65.1 (50-75) % Lymph % (Auto) 27.3 (25-40) % [place] % (Auto) 7.2 (3-14) % Eos % (Auto) 0.2 L (2-4) % Baso % (Auto) 0.2 (0-2) % Neut # (Auto) 4600 (8476-8488) /uL Lymph # (Auto) 1900 (5597-9097) /uL [place] # (Auto) 500 (0-900) /uL Eos # (Auto) 0 (0-450) /uL Baso # (Auto) 0 (0-100) /uL PT 11.2 (9.4-12.5) SECONDS INR 1.0 (0.9-1.3) APTT 36 (25.1-36.5) SECONDS Sodium 139 (137-145) mmol/L Potassium 4.0 (3.4-5.1) mmol/L Chloride 107 (98-107) mmol/L Carbon Dioxide 26 (22-32) mmol/L BUN 15 (7-17) mg/dL Creatinine 0.58 (0.52-1.04) mg/dL Estimated GFR > 60 (>60) mL/min BUN/Creatinine Ratio 25.9 H (6-22) Glucose 72 (70-100) mg/dL Calcium 9.0 (8.4-10.2) mg/dL Magnesium 1.9 (1.6-2.3) mg/dL Total Bilirubin 0.4 (0.2-1.3) mg/dL AST 30 (14-36) IU/L ALT 20 (<35) IU/L Alkaline Phosphatase 78 (38-126) U/L Total Creatine Kinase 52 (30-135) U/L Troponin I < 0.012 (0.01-0.034) ng/mL Total Protein 7.7 (6.3-8.2) g/dL Albumin 4.4 (3.5-5.0) g/dL Globulin 3.3 (1.7-4.1) g/dL Albumin/Globulin Ratio 1.3 (1.0-2.8) Lipase 64 (23-300) U/L MDM Narrative Medical decision making narrative: CC: Recurrent left-sided rib pain after increased activity 3 days ago Complicating co-morbidities: In July had 5 left-sided rib fractures secondary to the severity of cough, mild asthma ADHD Data collected from: patient Medical records reviewed: ED visits regarding recent multiple rib fractures reviewed Differential considered: Recurrent rib fractures, pneumothorax, pneumonia Exam documented above, pertinent findings include: Patient is tender over the area of prior rib fractures without subcutaneous air, reasonable air exchange and no other abnormalities appreciated Lab Test results independently reviewed as above. Pertinent findings: CBC is unremarkable Chemistries are reassuring Troponin is undetected Independently reviewed EKG: Sinus rhythm at a rate of 73. No acute ischemic changes, normal intervals, normal axis Imaging studies independently reviewed: Chest x-ray with attention to the left ribs shows no acute parenchymal findings and the prior left 3 through 8 rib fractures show normal callus and healing without new fractures appreciated Treatments: Toradol parenterally Discussion: 43-year-old woman with left rib fractures 3 through 8 appreciated after a severe coughing episode. These were mostly resolved when she returned to the gym and after jogging with increased respiratory rate and effort his again experiencing severe left-sided chest pain. No evidence of acute coronary findings, pneumothorax, pulmonary infiltrates or infection. Chest x-ray shows callus formation over the prior rib fractures with no new rib fractures. We talked about probably overdoing it a bit and straining the current rib fractures. Discussed use of ibuprofen and Tylenol for pain control and will I will send her home with a small prescription for Percocet. Recommended that she try walking before she gets back to jogging completely. Questions are answered and she is safe for discharge Discharge Plan Departure Patient Disposition: Home Clinical Impression: Rib pain on left side Instructions: DI for Rib Contusion Activity Restrictions/Additional Instructions: Thank you for coming in today I did not find any new pathology. There was no evidence of heart attack or heart attack like issue, no collapsed lung, no fluid collecting around your lung. I can see all of the prior rib fractures healing nicely with no evidence of new fractures. I suspect that you simply irritated the prior fractures and this is causing your symptoms. Using 400 mg of ibuprofen (2 [id number] pills) and 1 Tylenol every 6 hours can be very helpful in controlling pain. For severe pain you can use 400 mg of ibuprofen and 1 Percocet. If you do use Percocet please make sure that you are also taking a stool softener as narcotics will cause constipation I do recommend that you continue exercising however I would get comfortable with walking and recognizes that you might be a bit sore afterward. From there you can progress to more assertive exercise. If you find that you are getting worse or develop any new symptoms, please feel free to return to the emergency department for further evaluation. Prescriptions: New oxycodone-acetaminophen 5-325 mg tablet 1 tab PO Q6H PRN (Reason: pain) Qty: 14 0RF No Action ALBUTEROL SULFATE (Ventolin / Proventil) 0 INH Qty: 0 oxycodone-acetaminophen 5-325 mg tablet 1 tab PO Q6H PRN (Reason: pain) Qty: 14 0RF oxycodone-acetaminophen 5-325 mg tablet 1 tab PO Q6H PRN (Reason: pain) Qty: 14 0RF sucralfate [Carafate] 1 gram tablet 1 g PO BID Qty: 60 0RF dicyclomine 20 mg tablet 20 mg PO TID Qty: 60 0RF famotidine [Pepcid] 20 mg tablet 20 mg PO BID Qty: 30 0RF oxycodone-acetaminophen [Percocet] 5-325 mg tablet 1 tab PO BID PRN (Reason: pain, severe) Qty: 14 0RF lidocaine 5 % adhesive patch,medicated 1 patch topical DAILY PRN (Reason: pain, moderate) Qty: 30 0RF Rx Instructions: leave on most painful area for up to 12 hrs Referrals: Nathaniel Rahman MD [Primary Care Provider] - Stand Alone Forms: Patient Portal/API
[2023-10-17 15:05] LABS: Add Manual Diff / Slide Review NO; Basophils Absolute Auto 0 /uL (0-100); Basophils Percent Auto 0.2 % (0-2); Eosinophils Absolute Auto 0 /uL (0-450); Eosinophils Percent Auto 0.2 % (2-4); Hematocrit 40.1 % (36-46); Hemoglobin 13.6 g/dL (12.0-16.0); Lymphocytes Absolute Auto 1900 /uL (1100-4500); Lymphocytes Percent Auto 27.3 % (25-40); Mean Corpuscular HGB Conc 33.8 % (30-36); Mean Corpuscular Hemoglobin 27.9 PG (26-34); Mean Corpuscular Volume 82.5 fL (80-100); Monocytes Absolute Auto 500 /uL (0-900); Monocytes Percent Auto 7.2 % (3-14); Neutrophils Absolute Auto 4600 /uL (1500-7000); Neutrophils Percent Auto 65.1 % (50-75); Platelet Count 425 X10^3/uL (150-400); Red Blood Cell Count 4.86 X10^6/uL (4.0-5.2); Red Cell Distribution Width 14.6 % (11.6-14.8); White Blood Cell Count 7.1 X10^3/uL (4.5-11.0)
[2023-10-17 15:13] LABS: Prothrombin Time 11.2 SECONDS (9.4-12.5)
[2023-10-17 15:15] LABS: PTT Partial Thromboplastin Tim 36 SECONDS (25.1-36.5)
[2023-10-17 15:18] LABS: Alanine Aminotransferase 20 IU/L (<35); Albumin 4.4 g/dL (3.5-5.0); Albumin Globulin Ratio 1.3 (1.0-2.8); Alkaline Phosphatase 78 U/L (38-126); Aspartate Aminotransferase 30 IU/L (14-36); BUN Creatinine Ratio 25.9 (6-22); Bilirubin Total 0.4 mg/dL (0.2-1.3); Blood Urea Nitrogen 15 mg/dL (7-17); Carbon Dioxide 26 mmol/L (22-32); Chloride 107 mmol/L (98-107); Creatine Kinase 52 U/L (30-135); Estimated Glomerular Filt Rate > 60 mL/min (>60); Globulin 3.3 g/dL (1.7-4.1); Glucose 72 mg/dL (70-100); HEMOLYSIS 31 (0-50); Lipase 64 U/L (23-300); Magnesium 1.9 mg/dL (1.6-2.3); Sodium 139 mmol/L (137-145); Total Protein 7.7 g/dL (6.3-8.2)
[2023-10-17 15:29] LABS: Troponin I < 0.012 ng/mL (0.01-0.034)
[2023-10-17] MEDS: KETOROLAC 30 MG/ML VIAL 15 MG IV (16:43)
[2023-10-17 16:48] VITALS: BP 123/78; PULSE 72; RESP 12; O2SAT 98
== END 2023-10-17 16:52 | disposition home or self-care (01) ==
PROVIDERS: Emergency Provider Emergency Medicine; PCP Surgery
DX: R07.81 Pleurodynia (principal)
CPT/HCPCS: 36415; 71101; 80053; 82550; 83690; 83735; 84484; 85025; 85610; 85730; 93005; 96374; 99284; J1885

== ENCOUNTER 2024-03-27 14:53 | Emergency (ER) | payer OTHER, SELFPAY ==
[2024-03-27 15:09] VITALS: BP 147/75; PULSE 87; RESP 28; TEMP 37.2; O2SAT 100; BMI 37.6
--- NOTE | 2024-03-27 15:22 | DI.RAD.S_ITS ---
PROCEDURE: XR CHEST 2V INDICATIONS: short of breath TECHNIQUE: 2 views of the chest were acquired. COMPARISON: [facility], CR, XR CHEST 2V, 08/19/2023, 14:01. [facility], CR, XR CHEST 1V, 08/08/2023, 17:54. FINDINGS: Surgical changes and devices: None. Lungs and pleura: Lungs are clear. No pleural effusions or pneumothorax. Mediastinum: Mediastinal contours are normal. Heart size is normal. Bones and chest wall: No suspicious bony abnormalities. Soft tissues appear unremarkable. IMPRESSION: No acute cardiopulmonary abnormality is seen. Dictated by: Travis Otoole M.D. on 03/27/2024 at 16:14 Approved by: Travis Otoole M.D. on 03/27/2024 at 16:14
--- NOTE | 2024-03-27 16:08 | ED_ITS ---
<Statement entered by Michele Villa DO - 03/27/24 17:04> Dr. Villa: I was immediately available in the department for consultation. Documentation has been reviewed. I agree with assessment and plan. HPI - Asthma General Chief Complaint: Asthma Stated Complaint: SOB, wheezing, inhaler not helping Time Seen by Provider: 03/27/24 15:27 Source: patient Mode of arrival: Ambulatory History of Present Illness HPI Narrative: This patient is a 43-year-old female with a longstanding history of asthma. She states that she was sick approximately a week ago and she has had increased shortness of breath over the course of the last 2-3 days. She denies hemoptysis, night sweats, fever, chills, chest pain, MORALES or PND. Patient has a nebulizer at home but has not been using it. She states that her inhaler is not working. She also denies recent travel, prolonged sitting, history of PE or DVT. The patient was hoping to get a breathing treatment at today's ER visit. She has not seen her PCP for today's chief complaint. Related Data Home Medications Medication Instructions Recorded Confirmed ALBUTEROL SULFATE (Ventolin / 0 INH ##0 04/28/06 Proventil) Previous Rx's Medication Instructions Recorded dicyclomine 20 mg tablet 20 mg PO TID #60 tabs 07/25/23 famotidine 20 mg tablet (Pepcid) 20 mg PO BID #30 tabs 07/25/23 sucralfate 1 gram tablet (Carafate) 1 g PO BID #60 tabs 07/25/23 oxycodone-acetaminophen 5 mg-325 1 tab PO Q6H PRN pain #14 tabs 08/08/23 mg tablet oxycodone-acetaminophen 5 mg-325 1 tab PO Q6H PRN pain #14 tabs 08/08/23 mg tablet lidocaine 5 % topical patch 1 patch topical DAILY PRN pain, 08/19/23 moderate #30 ea oxycodone-acetaminophen 5 mg-325 1 tab PO BID PRN pain, severe #14 08/19/23 mg tablet (Percocet) tabs oxycodone-acetaminophen 5 mg-325 1 tab PO Q6H PRN pain #14 tabs 10/17/23 mg tablet doxycycline hyclate 100 mg tablet 100 mg PO BID #14 tabs 03/27/24 fluticasone 250 mcg-salmeterol 50 1 inh inhalation BID #60 ea 03/27/24 mcg/dose blistr powdr for inhalation (Advair Diskus) ipratropium 0.5 mg-albuterol 3 mg 3 ml inhalation Q4H PRN shortness 03/27/24 (2.5 mg base)/3 mL nebulization of breath or wheezing #180 mL soln prednisone 20 mg tablet 40 mg (2 x 20 mg) PO DAILY #14 tabs 03/27/24 Allergies Allergy/AdvReac Type Severity Reaction Status Date / Time clarithromycin Allergy Unknown Verified 07/25/23 17:46 [CLARITHROMYCIN] gluten [GLUTEN] Allergy Unknown Verified 08/19/23 13:16 penicillin V [PENICILLIN V] Allergy Unknown HEADACHE Verified 08/19/23 13:16 sulfamethoxazole Allergy Unknown MASSIVE Verified 08/19/23 13:16 [From SEPTRA] HEADACHES trimethoprim [From SEPTRA] Allergy Unknown MASSIVE Verified 08/19/23 13:16 HEADACHES zolpidem [From AMBIEN] Allergy Unknown HALLICINATI Verified 08/19/23 13:16 ONS codeine [CODEINE] AdvReac Unknown PROJECTILE Verified 08/19/23 13:16 VOMITTING hydrocodone [From VICODIN] AdvReac Unknown PROJECTILE Verified 08/19/23 13:16 VOMITTING Review of Systems Review of Systems Narrative: Review of systems: General: See HPI Respiratory: See HPI All other review of systems have been reviewed and ultimately negative unless otherwise stated in the HPI. Patient History Medical History Asthma Social History Smoking Status: Former smoker Smoking Status: Former smoker tobacco type: cigarettes and vaping alcohol intake frequency: holidays/special occasions only Substance Use Type: does not use Exam Initial Vital Signs Initial Vital Signs: Vital Signs Temperature 98.9 F 03/27/24 15:09 Pulse Rate 87 03/27/24 15:09 Respiratory Rate 28 H 03/27/24 15:09 Blood Pressure 147/75 H 03/27/24 15:09 Pulse Oximetry 100 03/27/24 15:09 Oxygen Delivery Method Room Air 03/27/24 15:09 Const General: cooperative, healthy appearing, comfortable, well developed and well groomed [facility] Head: normal to inspection, normocephalic and atraumatic Eyes General: Yes appearance normal, both eyes and all related structures Conjunctivae: conjunctivae normal Neck Neck: normal visual inspection, full ROM and no meningeal signs Resp Auscultation: clear to auscultation bilaterally Other: No wheezes, rales or rhonchi noted on exam. Cardio Rate: regular rate Rhythm: regular rhythm Heart Sounds: S1 normal and S2 normal Back/Spine/Pelvis Back: normal to inspection Skin General: no rashes or lesions noted, elasticity normal and turgor normal Neuro Cranial Nerves: CN's II-XI intact bilaterally and PERRL Extrem General: normal to inspection, full ROM, capillary refill normal, normal exam except as noted, no joint enlargement, no clubbing, cyanosis or edema, no pedal edema, no calf tenderness and calf tenderness Psych Appearance: grossly normal and well kempt Scores Wells' Criteria for PE Clinical signs and symptoms of DVT: No PE is #1 Dx or equally likely: No Heart rate > 100: No Immobilization at least 3 days or surg in previous 4 weeks: No History of PE or DVT: No Hemoptysis: No Malignancy w/Treatment within 6 months or palliative: No Wells' PE Score total: 0 Course Course Course Narrative: Patient was seen and examined. The two-view chest x-ray was ordered and interpreted by me. This revealed a small, linear, suspected infiltrate on the lateral view. There was no obvious pneumonia on the AP view. Patient was evaluated by respiratory therapy and was deemed not requiring a breathing treatment. The patient will receive dexamethasone IM prior to discharge. I will also start her on Advair, prednisone, doxycycline and have the patient restart DuoNeb via nebulizer at home. The patient is currently afebrile and not tachycardic. She has in no respiratory distress. Patient appears clinically stable for outpatient follow up. The patient understands treatment plan. No additional questions at the time of discharge and she will follow up as requested. As always, the patient was advised to return here immediately if worse. Orders Ordered: ED Orders 03/27/24 15:22 Chest [XR chest 2V] Stat 03/27/24 15:23 RT Consult Eval and Treat NOW Discontinued Medications Dexamethasone (Dexamethasone 10 Mg/Ml Vial) 10 mg IM NOW ONE Stop: 03/27/24 15:57 Vital Signs Vital signs: Vital Signs - 8 hr 03/27/24 15:09 Temperature 98.9 F Pulse Rate 87 Respiratory Rate 28 H Blood Pressure 147/75 H Pulse Oximetry 100 Oxygen Delivery Method Room Air MDM - Asthma Differential Diagnosis Differential diagnosis: Likely Acute exacerbation, Status asthmaticus, Acute asthmatic bronchitis, PE and Pneumonia Medical Records Attestation: I reviewed the patient's medical records. Imaging Data Chest x-ray: My Impression: According to my interpretation, there appears to be a small, linear, suspecting infiltrate on the lateral view. There is no obvious infiltrate noted on the AP view. There is no evidence of pneumothorax, hemopneumothorax or free air. MDM Narrative Medical decision making narrative: See above Discharge Plan Departure Patient Disposition: Home Clinical Impression: Pneumonia Qualifiers: Pneumonia type: due to unspecified organism Laterality: unspecified laterality Lung location: unspecified part of lung Qualified Code(s): J18.9 - Pneumonia, unspecified organism Instructions: DI for Asthma -- Adult Activity Restrictions/Additional Instructions: Increase clear fluid intake and rest Start the medications today as prescribed Follow-up with your PCP in 2-3 days Return here if worse Prescriptions: New ipratropium-albuterol 0.5 mg-3 mg(2.5 mg base)/3 mL solution for nebulization 3 ml inhalation Q4H PRN (Reason: shortness of breath or wheezing) Qty: 180 1RF doxycycline hyclate 100 mg tablet 100 mg PO BID Qty: 14 0RF prednisone 20 mg tablet 40 mg PO DAILY Qty: 14 0RF fluticasone propion-salmeterol [Advair Diskus] 250-50 mcg/dose blister with device 1 inh inhalation BID Qty: 60 0RF No Action ALBUTEROL SULFATE (Ventolin / Proventil) 0 INH Qty: 0 oxycodone-acetaminophen 5-325 mg tablet 1 tab PO Q6H PRN (Reason: pain) Qty: 14 0RF oxycodone-acetaminophen 5-325 mg tablet 1 tab PO Q6H PRN (Reason: pain) Qty: 14 0RF sucralfate [Carafate] 1 gram tablet 1 g PO BID Qty: 60 0RF dicyclomine 20 mg tablet 20 mg PO TID Qty: 60 0RF famotidine [Pepcid] 20 mg tablet 20 mg PO BID Qty: 30 0RF oxycodone-acetaminophen [Percocet] 5-325 mg tablet 1 tab PO BID PRN (Reason: pain, severe) Qty: 14 0RF lidocaine 5 % adhesive patch,medicated 1 patch topical DAILY PRN (Reason: pain, moderate) Qty: 30 0RF Rx Instructions: leave on most painful area for up to 12 hrs oxycodone-acetaminophen 5-325 mg tablet 1 tab PO Q6H PRN (Reason: pain) Qty: 14 0RF Referrals: ProviderKemi [Primary Care Provider] - Stand Alone Forms: Patient Portal/API
[2024-03-27] MEDS: DEXAMETHASONE 10 MG/ML VIAL IM (16:18)
[2024-03-27 16:28] VITALS: BP 117/67; PULSE 79; RESP 14; O2SAT 100
== END 2024-03-27 16:29 | disposition home or self-care (01) ==
PROVIDERS: Emergency Provider Physician Assistant
DX: J18.9 Pneumonia, unspecified organism (principal)
CPT/HCPCS: 71046; 96372; 99283; J1100

== ENCOUNTER 2024-04-01 13:30 | Observation (INO) | payer OTHER, SELFPAY ==
[2024-04-01] VITALS (11 sets, daily range): BP systolic 116–154; BP diastolic 64–92; PULSE 104–121; RESP 20–30; TEMP 36.1–36.8; O2SAT 94–99; BMI 37.6
--- NOTE | 2024-04-01 13:48 | DI.RAD.S_ITS ---
PROCEDURE: XR CHEST 2V INDICATIONS: pneumonia, increase shortness of breath. TECHNIQUE: 2 views of the chest were acquired. COMPARISON: [facility], CR, XR CHEST 2V, 03/27/2024, 15:37. FINDINGS: Surgical changes and devices: None. Lungs and pleura: Lungs are clear. No pleural effusions or pneumothorax. Mediastinum: Mediastinal contours are normal. Heart size is normal. Bones and chest wall: No suspicious bony abnormalities. Soft tissues appear unremarkable. IMPRESSION: No acute pulmonary process. Dictated by: Lola Garcia M.D. on 04/01/2024 at 15:12 Approved by: Lola Garcia M.D. on 04/01/2024 at 15:13
[2024-04-01] MEDS: ALBUTEROL 2.5 MG/3 ML NEB (ADULT) 20 MG INH (13:51)
[2024-04-01 14:46] LABS: COVID-19 CEPHEID 4-PLEX PCR Negative (Negative); Influenza A - CEPHEID Flu A NEGATIVE (NEGATIVE); Influenza B - CEPHEID Flu B NEGATIVE (NEGATIVE); Respiratory Syncytial Virus Negative (Negative)
--- NOTE | 2024-04-01 15:55 | ED_ITS ---
HPI - SOB/Dyspnea General Chief Complaint: Shortness of Breath/Dyspnea Stated Complaint: pneumonia, sob Time Seen by Provider: 04/01/24 15:50 Source: patient Mode of arrival: Ambulatory History of Present Illness HPI Narrative: 43-year-old female with history of anxiety, seen here for respiratory illness symptoms 03/27/2024, provider at that time thought there was infiltrate on lateral view chest x-ray, Radiology report was negative, patient was discharged on regimen of doxycycline antibiotic along with steroid oral pulse, and inhalers. She reports continued shortness of breath. No history of blood clots to legs or lungs, no leg pain or swelling symptoms. Related Data Home Medications Medication Instructions Recorded Confirmed ALBUTEROL SULFATE (Ventolin / 0 INH ##0 04/28/06 Proventil) Previous Rx's Medication Instructions Recorded dicyclomine 20 mg tablet 20 mg PO TID #60 tabs 07/25/23 famotidine 20 mg tablet (Pepcid) 20 mg PO BID #30 tabs 07/25/23 lidocaine 5 % topical patch 1 patch topical DAILY PRN pain, 08/19/23 moderate #30 ea doxycycline hyclate 100 mg tablet 100 mg PO BID #14 tabs 03/27/24 fluticasone 250 mcg-salmeterol 50 1 inh inhalation BID #60 ea 03/27/24 mcg/dose blistr powdr for inhalation (Advair Diskus) ipratropium 0.5 mg-albuterol 3 mg 3 ml inhalation Q4H PRN shortness 03/27/24 (2.5 mg base)/3 mL nebulization of breath or wheezing #180 mL soln prednisone 20 mg tablet 40 mg (2 x 20 mg) PO DAILY #14 tabs 03/27/24 Allergies Allergy/AdvReac Type Severity Reaction Status Date / Time clarithromycin Allergy Unknown Verified 04/01/24 13:39 [CLARITHROMYCIN] gluten [GLUTEN] Allergy Unknown Verified 04/01/24 13:39 penicillin V [PENICILLIN V] Allergy Unknown HEADACHE Verified 04/01/24 13:39 sulfamethoxazole Allergy Unknown MASSIVE Verified 04/01/24 13:39 [From SEPTRA] HEADACHES trimethoprim [From SEPTRA] Allergy Unknown MASSIVE Verified 04/01/24 13:39 HEADACHES zolpidem [From AMBIEN] Allergy Unknown HALLICINATI Verified 04/01/24 13:39 ONS promethazine [From Phenergan] Allergy Shakiness Verified 04/01/24 13:39 codeine [CODEINE] AdvReac Unknown PROJECTILE Verified 04/01/24 13:39 VOMITTING hydrocodone [From VICODIN] AdvReac Unknown PROJECTILE Verified 04/01/24 13:39 VOMITTING Review of Systems Review of Systems Narrative: see HPI Patient History Medical History Asthma Social History household members: spouse and family Smoking Status: Former smoker alcohol intake: never Smoking Status: Former smoker tobacco type: cigarettes and vaping alcohol intake frequency: holidays/special occasions only Substance Use Type: does not use Exam Narrative Exam Narrative: GENERAL: Well-developed patient, in mild distress. HEAD: Atraumatic. Normocephalic. EYES: Pupils equal round and reactive. Extraocular motions intact. No scleral icterus. No injection or drainage. ENT: Nose without bleeding, purulent drainage. Throat without erythema, tonsillar hypertrophy or exudate. Airway patent. NECK: Trachea midline. Non tender CARDIOVASCULAR: Fast regular rate and rhythm without murmurs, gallops, or rubs. RESPIRATORY: Clear to auscultation. Breath sounds equal bilaterally. No wheezes, rales, or rhonchi. GASTROINTESTINAL: Abdomen soft, non-tender, nondistended. EXTREMITIES: No edema or joint tenderness. BACK: Nontender without deformity or crepitance. No flank tenderness. NEURO: AOx3. Motor functions grossly nonfocal SKIN: No rash or erythema of visible areas Initial Vital Signs Initial Vital Signs: Vital Signs Temperature 96.9 F L 04/01/24 13:35 Pulse Rate 107 H 04/01/24 13:35 Respiratory Rate 22 04/01/24 13:35 Blood Pressure 148/92 H 04/01/24 13:35 Pulse Oximetry 98 04/01/24 13:35 Oxygen Delivery Method Room Air 04/01/24 13:35 Course Orders Ordered: ED Orders 04/01/24 13:48 XR chest 2V Stat 04/01/24 13:56 Covid-19 + FLU A/B + RSV - PCR Stat 04/01/24 16:20 CT angio chest PE protocol Stat 04/01/24 16:25 CBC Auto Diff [Complete Blood Count AUTO DIFF] Stat CMP [Comprehensive Metabolic Panel] Stat Lactate (Lactic Acid) Stat NT-proBNP (BNP-Adult 18+) Stat Procalcitonin Stat 04/01/24 17:33 Lactate (Lactic Acid) Stat 04/01/24 17:35 Lactate (Lactic Acid) Stat 04/01/24 18:00 Blood Culture Stat 04/01/24 18:04 Urinalysis and Microscopic Stat Acetaminophen (Acetaminophen 325 Mg Tablet) 650 mg PO Q6H PRN PRN Reason: Fever/Mild Pain (1-3) Albuterol (Albuterol 2.5 Mg/3 Ml Neb (Adult)) 2.5 mg INH [id number] PRN PRN Reason: Shortness Of Breath Or Wheezing Dextrose/Sodium Chloride (Dextrose 5%-0.9% Ns) 1,000 mls @ 100 mls/hr IV CONT RAS Doxycycline Hyclate 100 mg/ (Sodium Chloride) 100 mls @ 100 mls/hr IV Q12H RAS Last Admin: 04/01/24 20:05 Dose: 100 mls/hr Documented By: TLS Ceftriaxone Sodium 1,000 mg/ (Sodium Chloride) 100 mls @ 200 mls/hr IV Q24H RAS Methylprednisolone (Methylprednisolone 125 Mg/2 Ml Vial) 60 mg IV Q6HR RAS Naloxone HCl (Naloxone 0.4 Mg/Ml Vial) 0.2 mg IV Q2MIN PRN PRN Reason: Opiate Reversal Discontinued Medications Albuterol (Albuterol 2.5 Mg/3 Ml Neb (Adult)) 20 mg INH NOW ONE Stop: 04/01/24 13:49 Last Admin: 04/01/24 13:51 Dose: 20 mg Documented By: VALERIA Albuterol (Albuterol 2.5 Mg/3 Ml Neb (Adult)) 2.5 mg INH NOW ONE Stop: 04/01/24 18:27 Last Admin: 04/01/24 19:09 Dose: 2.5 mg Documented By: ELAINE Doxycycline Hyclate (Doxycycline Hyclate 100 Mg Tablet) 100 mg PO NOW ONE Stop: 04/01/24 17:35 Last Admin: 04/01/24 19:00 Dose: Not Given Documented By: MATTEO Sodium Chloride (Normal Saline 0.9%) 1,000 mls @ 500 mls/hr IV BOLUS ONE Stop: 04/01/24 18:20 Last Infusion: 04/01/24 19:01 Dose: Infused Documented By: Admin: 04/01/24 16:53 Dose: 500 mls/hr Documented By: MATTEO Ceftriaxone Sodium 1,000 mg/ (Sodium Chloride) 100 mls @ 200 mls/hr IV NOW ONE Stop: 04/01/24 17:35 Last Infusion: 04/01/24 19:16 Dose: Infused Documented By: Infusion: 04/01/24 18:15 Dose: 200 mls/hr Documented By: Infusion: 04/01/24 18:07 Dose: 0 mls/hr Documented By: Admin: 04/01/24 18:02 Dose: 200 mls/hr Documented By: MATTEO Sodium Chloride (Normal Saline 0.9%) 1,000 mls @ 1,000 mls/hr IV BOLUS ONE Stop: 04/01/24 19:13 Vital Signs Vital signs: Vital Signs - 8 hr 04/01/24 13:35 04/01/24 13:52 04/01/24 15:28 Temperature 96.9 F L Pulse Rate 107 H 107 H Respiratory Rate 22 24 Blood Pressure 148/92 H 116/67 Pulse Oximetry 98 98 Oxygen Delivery Method Room Air Room Air Oxygen Flow Rate 0 Fraction of Inspired Oxygen 21 04/01/24 15:29 04/01/24 15:30 04/01/24 15:30 Temperature Pulse Rate 121 H 121 H Respiratory Rate Blood Pressure 134/69 Pulse Oximetry 98 99 Oxygen Delivery Method Oxygen Flow Rate Fraction of Inspired Oxygen 04/01/24 16:09 04/01/24 16:30 04/01/24 16:30 Temperature Pulse Rate 114 H 112 H Respiratory Rate 22 23 Blood Pressure 138/64 Pulse Oximetry 96 94 Oxygen Delivery Method Oxygen Flow Rate Fraction of Inspired Oxygen 04/01/24 17:04 04/01/24 17:04 04/01/24 17:30 Temperature Pulse Rate 117 H 109 H Respiratory Rate 26 H 30 H Blood Pressure 146/80 H Pulse Oximetry 98 97 Oxygen Delivery Method Oxygen Flow Rate Fraction of Inspired Oxygen 04/01/24 17:30 Temperature Pulse Rate Respiratory Rate Blood Pressure 154/84 H Pulse Oximetry Oxygen Delivery Method Oxygen Flow Rate Fraction of Inspired Oxygen MDM - SOB/Dyspnea Lab Data Attestation: I reviewed the patient's lab results. Lab results narrative: COVID negative, flu negative, RSV negative 04/01/24 16:25 04/01/24 16:25 Labs: Lab Results 04/01/24 04/01/24 04/01/24 Range/Units 13:56 16:25 17:33 WBC 10.2 (4.5-11.0) X10^3/uL RBC 5.07 (4.0-5.2) X10^6/uL Hgb 13.6 (12.0-16.0) g/dL Hct 41.7 (36-46) % MCV 82.3 (80-100) fL MCH 26.9 (26-34) PG MCHC 32.7 (30-36) % RDW 14.6 (11.6-14.8) % Plt Count 475 H (150-400) X10^3/uL Neut % (Auto) 84.6 H (50-75) % Lymph % (Auto) 11.4 L (25-40) % Roosevelt % (Auto) 3.8 (3-14) % Eos % (Auto) 0.0 L (2-4) % Baso % (Auto) 0.2 (0-2) % Neut # (Auto) 8600 H (8652-4228) /uL Lymph # (Auto) 1200 (1813-6345) /uL Roosevelt # (Auto) 400 (0-900) /uL Eos # (Auto) 0 (0-450) /uL Baso # (Auto) 0 (0-100) /uL Sodium 138 (137-145) mmol/L Potassium 3.7 (3.4-5.1) mmol/L Chloride 106 (98-107) mmol/L Carbon Dioxide 16 L (22-32) mmol/L BUN 11 (7-17) mg/dL Creatinine 0.69 (0.52-1.04) mg/dL Estimated GFR > 60 (>60) mL/min BUN/Creatinine Ratio 15.9 (6-22) Glucose 136 H (70-100) mg/dL Lactate 5.7 H* 5.1 H* (0.7-2.1) mmol/L Calcium 9.7 (8.4-10.2) mg/dL Total Bilirubin 0.4 (0.2-1.3) mg/dL AST 25 (14-36) IU/L ALT 64 H (<35) IU/L Alkaline Phosphatase 82 (38-126) U/L NT-Pro-B Natriuret Pep 167 H (<125) pg/mL Total Protein 7.6 (6.3-8.2) g/dL Albumin 4.5 (3.5-5.0) g/dL Globulin 3.1 (1.7-4.1) g/dL Albumin/Globulin Ratio 1.5 (1.0-2.8) Procalcitonin 0.034 (<0.5) ng/mL Urine Color Urine Appearance Urine pH (4.5-8.0) Ur Specific Manito (1.000-1.035) Urine Protein (Negative) Urine Glucose (UA) (Negative) g/dL Urine Ketones (NEGATIVE) Urine Occult Blood (Negative) Urine Nitrate (Negative) Urine Bilirubin (NEGATIVE) Urine Urobilinogen (0.2) E.U./dL Ur Leukocyte Esterase (NEGATIVE) Urine RBC (0-5/HPF) Urine WBC (0-5/HPF) Ur Squamous Epith Cells (0-5/HPF) Urine Bacteria (None) Ur Culture Indicated? Vol Urine Centrifuged SARS-CoV-2 (PCR) Negative (Negative) Influenza A (RT-PCR) Flu a negative (NEGATIVE) Influenza B (RT-PCR) Flu b negative (NEGATIVE) RSV (PCR) Negative (Negative) 04/01/24 Range/Units 18:04 WBC (4.5-11.0) X10^3/uL RBC (4.0-5.2) X10^6/uL Hgb (12.0-16.0) g/dL Hct (36-46) % MCV (80-100) fL MCH (26-34) PG MCHC (30-36) % RDW (11.6-14.8) % Plt Count (150-400) X10^3/uL Neut % (Auto) (50-75) % Lymph % (Auto) (25-40) % Roosevelt % (Auto) (3-14) % Eos % (Auto) (2-4) % Baso % (Auto) (0-2) % Neut # (Auto) (3877-1660) /uL Lymph # (Auto) (5403-8237) /uL Roosevelt # (Auto) (0-900) /uL Eos # (Auto) (0-450) /uL Baso # (Auto) (0-100) /uL Sodium (137-145) mmol/L Potassium (3.4-5.1) mmol/L Chloride (98-107) mmol/L Carbon Dioxide (22-32) mmol/L BUN (7-17) mg/dL Creatinine (0.52-1.04) mg/dL Estimated GFR (>60) mL/min BUN/Creatinine Ratio (6-22) Glucose (70-100) mg/dL Lactate (0.7-2.1) mmol/L Calcium (8.4-10.2) mg/dL Total Bilirubin (0.2-1.3) mg/dL AST (14-36) IU/L ALT (<35) IU/L Alkaline Phosphatase (38-126) U/L NT-Pro-B Natriuret Pep (<125) pg/mL Total Protein (6.3-8.2) g/dL Albumin (3.5-5.0) g/dL Globulin (1.7-4.1) g/dL Albumin/Globulin Ratio (1.0-2.8) Procalcitonin (<0.5) ng/mL Urine Color Yellow Urine Appearance Clear Urine pH 7.0 (4.5-8.0) Ur Specific Man[place] <=1.005 (1.000-1.035) Urine Protein Negative (Negative) Urine Glucose (UA) Negative (Negative) g/dL Urine Ketones Negative (NEGATIVE) Urine Occult Blood Negative (Negative) Urine Nitrate Negative (Negative) Urine Bilirubin Negative (NEGATIVE) Urine Urobilinogen 0.2 (0.2) E.U./dL Ur Leukocyte Esterase Negative (NEGATIVE) Urine RBC None seen (0-5/HPF) Urine WBC None seen (0-5/HPF) Ur Squamous Epith Cells 0-1 /hpf (0-5/HPF) Urine Bacteria None seen (None) Ur Culture Indicated? Cult not indicated Vol Urine Centrifuged 10ml (spun) SARS-CoV-2 (PCR) (Negative) Influenza A (RT-PCR) (NEGATIVE) Influenza B (RT-PCR) (NEGATIVE) RSV (PCR) (Negative) Imaging Data Chest x-ray: Radiologist's Impression: Close Chest X-Ray (Signed) Lola Garcia - 04/01/24 Launch?[address] [address] XRay Report Signed Patient: Azam Christian MR#: [id number] : 1980 Acct:[id number] Age/Sex: 43 / F Date of Service: 04/01/24 Loc: ED Accession Number: [id number] Procedure: XR chest 2V Ordering Provider: John Licona MD PROCEDURE: XR CHEST 2V INDICATIONS: pneumonia, increase shortness of breath. TECHNIQUE: 2 views of the chest were acquired. COMPARISON: [facility], CR, XR CHEST 2V, 03/27/2024, 15:37. FINDINGS: Surgical changes and devices: None. Lungs and pleura: Lungs are clear. No pleural effusions or pneumothorax. Mediastinum: Mediastinal contours are normal. Heart size is normal. Bones and chest wall: No suspicious bony abnormalities. Soft tissues appear unremarkable. IMPRESSION: No acute pulmonary process. Dictated by: Lola aGrcia M.D. on 04/01/2024 at 15:12 Approved by: Lola Garcia M.D. on 04/01/2024 at 15:13 CTA chest: Radiologist's Impression: [place] [address] CT Scan Report Signed Patient: Azam Christian MR#: [id number] : 1980 Acct:[id number] Age/Sex: 43 / F Date of Service: 04/01/24 Loc: ED Accession Number: [id number] Procedure: CT angio chest PE protocol Ordering Provider: John Licona MD PROCEDURE: CT ANGIO CHEST PE PROTOCOL INDICATIONS: dysnea, Covid/flu neg, CXR x2 neg, tachy, eval for PE TECHNIQUE: After the administration of intravenous contrast, 2 mm thick sections acquired from the pulmonary apices to the posterior costophrenic angles. 3-dimensional maximum intensity projection (MIP) coronal and sagittal reformats were then acquired through the thorax. For radiation dose reduction, the following was used: automated exposure control, adjustment of mA and/or kV according to patient size. COMPARISON: [facility], CT, CT ANGIO CHEST PE PROTOCOL, 07/25/2023, 18:01. FINDINGS: Image quality: Diagnostic. Pulmonary arteries: Pulmonary arteries are normal in size, and demonstrate no intraluminal filling defects to suggest central pulmonary embolism. Lower Neck: No enlarged lymph nodes. Thyroid: No thyroid nodules which require sonographic follow up, per consensus guidelines. Axillae: No enlarged lymph nodes. Chest Wall: Unremarkable. Bones: Unremarkable. Lungs and Pleura: No pneumothorax or pleural effusions. No consolidation or suspicious nodules. Heart: Heart size is normal. No pericardial effusion. Thoracic Vessels: No aortic aneurysm. Mediastinum and Mariann: No enlarged lymph nodes. Esophagus: No wall thickening. No hiatal hernia. Upper Abdomen: Visualized upper abdomen solid organs and bowel loops appear normal. IMPRESSION: No pulmonary embolus. No acute cardiopulmonary process. Approved by: Diane Alexis M.D.,Ph.D. on 04/01/2024 at 17:49 MDM Narrative Medical decision making narrative: 43-year-old female ongoing respiratory symptoms with shortness of breath, no oxygen requirement, speaks in full sentences, no wheezing or crackles on exam. Respiratory therapy gave SVN DuoNeb, and verbally reported taht he did not appreciate wheezes before after treatment. X-ray chest from previous visit read by Radiology as negative, no infiltrates described. Sinus tachycardia noted. We will repeat chest x-ray for today, send COVID/flu testing. Chest x-ray negative again today, see radiology report. COVID negative, flu negative, RSV negative. Patient had a little response to SVN. Persisiting sinus tachycardia noted on monitor, normotensive. We will send labs. Consider CT angio study, although patient seems low risk for pulmonary embolus, but persistent tachycardia. Consider anxiety, but she says that she does not feel particularly anxious, states that she does not feel like she has having an anxiety problem. IV fluid bolus. Patient would like CT angio chest study when we discussed risks and benefits, CTA chest ordered. Lactate 5.7 elevated, blood cultures requested. IV fluid 1 L bolus for now. Will repeat lactate to make sure this is not a lab error given lack of leukocytosis/bandemia. Add procalcitonin. Normotensive thus far. Check UA. CTA lungs no pulmonary embolus, no acute changes, see radiology report. UA negative. Repeat lactate 5.1 also elevated, additional IV fluids ordered. 1819, case discussed with hospitalist Dr. Mejias who accepts patient for admission to observation Discharge Plan Departure Patient Disposition: Admitted as Observation Clinical Impression: Lactic acidosis, Dyspnea Admit Date/Time: 04/01/24 18:29 Admit Provider: Federico Mejias
--- NOTE | 2024-04-01 16:20 | DI.CT.S_ITS ---
PROCEDURE: CT ANGIO CHEST PE PROTOCOL INDICATIONS: dysnea, Covid/flu neg, CXR x2 neg, tachy, eval for PE TECHNIQUE: After the administration of intravenous contrast, 2 mm thick sections acquired from the pulmonary apices to the posterior costophrenic angles. 3-dimensional maximum intensity projection (MIP) coronal and sagittal reformats were then acquired through the thorax. For radiation dose reduction, the following was used: automated exposure control, adjustment of mA and/or kV according to patient size. COMPARISON: [facility], CT, CT ANGIO CHEST PE PROTOCOL, 07/25/2023, 18:01. FINDINGS: Image quality: Diagnostic. Pulmonary arteries: Pulmonary arteries are normal in size, and demonstrate no intraluminal filling defects to suggest central pulmonary embolism. Lower Neck: No enlarged lymph nodes. Thyroid: No thyroid nodules which require sonographic follow up, per consensus guidelines. Axillae: No enlarged lymph nodes. Chest Wall: Unremarkable. Bones: Unremarkable. Lungs and Pleura: No pneumothorax or pleural effusions. No consolidation or suspicious nodules. Heart: Heart size is normal. No pericardial effusion. Thoracic Vessels: No aortic aneurysm. Mediastinum and Mariann: No enlarged lymph nodes. Esophagus: No wall thickening. No hiatal hernia. Upper Abdomen: Visualized upper abdomen solid organs and bowel loops appear normal. IMPRESSION: No pulmonary embolus. No acute cardiopulmonary process. Approved by: Diane Alexis M.D.,Ph.D. on 04/01/2024 at 17:49
[2024-04-01 16:33] LABS: Add Manual Diff / Slide Review NO; Basophils Absolute Auto 0 /uL (0-100); Basophils Percent Auto 0.2 % (0-2); Eosinophils Absolute Auto 0 /uL (0-450); Hematocrit 41.7 % (36-46); Hemoglobin 13.6 g/dL (12.0-16.0); Lymphocytes Absolute Auto 1200 /uL (1100-4500); Lymphocytes Percent Auto 11.4 % (25-40); Mean Corpuscular HGB Conc 32.7 % (30-36); Mean Corpuscular Hemoglobin 26.9 PG (26-34); Mean Corpuscular Volume 82.3 fL (80-100); Monocytes Absolute Auto 400 /uL (0-900); Monocytes Percent Auto 3.8 % (3-14); Neutrophils Absolute Auto 8600 /uL (1500-7000); Neutrophils Percent Auto 84.6 % (50-75); Platelet Count 475 X10^3/uL (150-400); Red Blood Cell Count 5.07 X10^6/uL (4.0-5.2); Red Cell Distribution Width 14.6 % (11.6-14.8); White Blood Cell Count 10.2 X10^3/uL (4.5-11.0)
[2024-04-01 16:47] LABS: Alanine Aminotransferase 64 IU/L (<35); Albumin 4.5 g/dL (3.5-5.0); Albumin Globulin Ratio 1.5 (1.0-2.8); Alkaline Phosphatase 82 U/L (38-126); Aspartate Aminotransferase 25 IU/L (14-36); BUN Creatinine Ratio 15.9 (6-22); Bilirubin Total 0.4 mg/dL (0.2-1.3); Blood Urea Nitrogen 11 mg/dL (7-17); Calcium 9.7 mg/dL (8.4-10.2); Carbon Dioxide 16 mmol/L (22-32); Chloride 106 mmol/L (98-107); Estimated Glomerular Filt Rate > 60 mL/min (>60); Globulin 3.1 g/dL (1.7-4.1); Glucose 136 mg/dL (70-100); HEMOLYSIS < 15 (0-50); Potassium 3.7 mmol/L (3.4-5.1); Sodium 138 mmol/L (137-145); Total Protein 7.6 g/dL (6.3-8.2)
[2024-04-01] MEDS: SODIUM CHLORIDE 0.9% 1,000 ML 500 ML IV (16:53)
[2024-04-01 17:20] LABS: Lactate (Lactic Acid) 5.7 mmol/L (0.7-2.1)
[2024-04-01] MEDS: cefTRIAXone 1,000 MG in SODIUM CHLORIDE 0.9% 100 ML 200 MG IV (18:02)
[2024-04-01 18:05] LABS: Reflexed Lactate in 2 Hours Y
[2024-04-01 18:08] LABS: Lactate (Lactic Acid) 5.1 mmol/L (0.7-2.1)
--- NOTE | 2024-04-01 18:22 | P.HP_ITS ---
History of Present Illness History of Present Illness Date Patient Seen: 04/01/24 Chief complaint: pneumonia, sob Narrative: The patient is a 43 year old female with a history of asthma. She was multiple exacerbations year which usually are secondary to pneumonia. She has been ill for about 5 days with cough and progressive dyspnea and wheezing. She notes that initial chest x-ray frequently miss her pneumonia but that it will show up after IV hydration. She has been fatigued and dyspneic with exertion. She also is shaky from bronchodilators in the emergency department. She was never been intubated or required positive pressure ventilation. Her respiratory PCR was negative. In the ED, she was found to have a lactic acidosis. She was given some fluid. Blood cultures were taken and she was given IV antibiotics. A urine was unremarkable and her chest x-ray was negative for infiltrate. She notes her breathing is very tight and she does hear some grunting and expiratory wheezing from her right lung more than left. No nausea, vomiting or diarrhea. No fevers, or chills. [facility] Medical History Asthma Social History Smoking Status: Former smoker Meds Home Medications and Allergies Home Medications Medication Instructions Recorded Confirmed Type ALBUTEROL SULFATE (Ventolin / 0 INH ##0 04/28/06 History Proventil) dicyclomine 20 mg tablet 20 mg PO TID #60 tabs 07/25/23 Rx famotidine 20 mg tablet (Pepcid) 20 mg PO BID #30 tabs 07/25/23 Rx sucralfate 1 gram tablet (Carafate) 1 g PO BID #60 tabs 07/25/23 Rx oxycodone-acetaminophen 5 mg-325 1 tab PO Q6H PRN pain #14 tabs 08/08/23 Rx mg tablet oxycodone-acetaminophen 5 mg-325 1 tab PO Q6H PRN pain #14 tabs 08/08/23 Rx mg tablet lidocaine 5 % topical patch 1 patch topical DAILY PRN pain, 08/19/23 Rx moderate #30 ea oxycodone-acetaminophen 5 mg-325 1 tab PO BID PRN pain, severe #14 08/19/23 Rx mg tablet (Percocet) tabs oxycodone-acetaminophen 5 mg-325 1 tab PO Q6H PRN pain #14 tabs 10/17/23 Rx mg tablet doxycycline hyclate 100 mg tablet 100 mg PO BID #14 tabs 03/27/24 Rx fluticasone 250 mcg-salmeterol 50 1 inh inhalation BID #60 ea 03/27/24 Rx mcg/dose blistr powdr for inhalation (Advair Diskus) ipratropium 0.5 mg-albuterol 3 mg 3 ml inhalation Q4H PRN shortness 03/27/24 Rx (2.5 mg base)/3 mL nebulization of breath or wheezing #180 mL soln prednisone 20 mg tablet 40 mg (2 x 20 mg) PO DAILY #14 tabs 03/27/24 Rx Allergies Allergy/AdvReac Type Severity Reaction Status Date / Time clarithromycin Allergy Unknown Verified 04/01/24 13:39 [CLARITHROMYCIN] gluten [GLUTEN] Allergy Unknown Verified 04/01/24 13:39 penicillin V [PENICILLIN V] Allergy Unknown HEADACHE Verified 04/01/24 13:39 sulfamethoxazole Allergy Unknown MASSIVE Verified 04/01/24 13:39 [From SEPTRA] HEADACHES trimethoprim [From SEPTRA] Allergy Unknown MASSIVE Verified 04/01/24 13:39 HEADACHES zolpidem [From AMBIEN] Allergy Unknown HALLICINATI Verified 04/01/24 13:39 ONS promethazine [From Phenergan] Allergy Shakiness Verified 04/01/24 13:39 codeine [CODEINE] AdvReac Unknown PROJECTILE Verified 04/01/24 13:39 VOMITTING hydrocodone [From VICODIN] AdvReac Unknown PROJECTILE Verified 04/01/24 13:39 VOMITTING Review of Systems Review of Systems Narrative: All else reviewed and otherwise unremarkable except as noted in the history and physical. Exam Vital Signs (past 8 hours): - 04/01/24 13:35 04/01/24 13:52 04/01/24 15:28 Temperature 96.9 F L Pulse Rate 107 H 107 H Respiratory Rate 22 24 Blood Pressure 148/92 H 116/67 Pulse Oximetry 98 98 Oxygen Delivery Method Room Air Room Air Oxygen Flow Rate 0 Fraction of Inspired Oxygen 21 04/01/24 15:29 04/01/24 15:30 04/01/24 15:30 Temperature Pulse Rate 121 H 121 H Respiratory Rate Blood Pressure 134/69 Pulse Oximetry 98 99 Oxygen Delivery Method Oxygen Flow Rate Fraction of Inspired Oxygen 04/01/24 16:09 04/01/24 16:30 04/01/24 16:30 Temperature Pulse Rate 114 H 112 H Respiratory Rate 22 23 Blood Pressure 138/64 Pulse Oximetry 96 94 Oxygen Delivery Method Oxygen Flow Rate Fraction of Inspired Oxygen 04/01/24 17:04 04/01/24 17:04 04/01/24 17:30 Temperature Pulse Rate 117 H 109 H Respiratory Rate 26 H 30 H Blood Pressure 146/80 H Pulse Oximetry 98 97 Oxygen Delivery Method Oxygen Flow Rate Fraction of Inspired Oxygen 04/01/24 17:30 Temperature Pulse Rate Respiratory Rate Blood Pressure 154/84 H Pulse Oximetry Oxygen Delivery Method Oxygen Flow Rate Fraction of Inspired Oxygen Fraction of Inspired Oxygen 21 SaO2/FiO2 Ratio 466 Oxygen Delivery Method Room Air Oxygen Flow Rate 0 Narrative Exam Narrative: NAD, alert and oriented, fluent speech, she appears anxious.. Normocephalic skull, EOMI, anicteric sclera, symmetric pupils. Oropharynx unremarkable, no droop. Neck supple, midline trachea, no adenopathy. Lungs with diminished breath sounds, expiratory wheezing diffusely, some grunting in the right anterior lung field, and increased effort.. Heart regular, no murmur gallop or rub. Abdomen is soft, non distended and non tender. Extremities are free of edema. Skin is free of rash or lesions. Joints are not swollen or deformed. Judgment appears to be normal. Objective Imaging Multiple studies:: Radiologist's impression: Chest CTA: No pulmonary embolus. No acute cardiopulmonary process. CXR: No acute pulmonary process. Labs 04/01/24 16:25 04/01/24 16:25 Labs: Laboratory Results - last 24 hr 04/01/24 04/01/24 04/01/24 13:56 16:25 17:33 WBC 10.2 RBC 5.07 Hgb 13.6 Hct 41.7 MCV 82.3 MCH 26.9 MCHC 32.7 RDW 14.6 Plt Count 475 H Neut % (Auto) 84.6 H Lymph % (Auto) 11.4 L [place] % (Auto) 3.8 Eos % (Auto) 0.0 L Baso % (Auto) 0.2 Neut # (Auto) 8600 H Lymph # (Auto) 1200 [place] # (Auto) 400 Eos # (Auto) 0 Baso # (Auto) 0 Sodium 138 Potassium 3.7 Chloride 106 Carbon Dioxide 16 L BUN 11 Creatinine 0.69 Estimated GFR > 60 BUN/Creatinine Ratio 15.9 Glucose 136 H Lactate 5.7 H* 5.1 H* Calcium 9.7 Total Bilirubin 0.4 AST 25 ALT 64 H Alkaline Phosphatase 82 Total Protein 7.6 Albumin 4.5 Globulin 3.1 Albumin/Globulin Ratio 1.5 SARS-CoV-2 (PCR) Negative Influenza A (RT-PCR) Flu a negative Influenza B (RT-PCR) Flu b negative RSV (PCR) Negative Assessment & Plan Assessment & Plan narrative: 1. Lactic acidosis, present on admission and active. 2. Asthma exacerbation, present on admission and stable. 3. Probable pnauemonia, present on admission and active. 4. Anxiety, stable. PLAN: -IVF, trend lactic acid -Ceftriaxone and doxycycline -IV corticosteroids with Medrol q.6 hours -bronchodilators q.2 hours as needed -follow blood cx -trend lactic acid. -repeat chest x-ray in the morning Anticipate 1 midnight stay, observation status. Full code LEANNA is 04/02. Time-Based Coding :: 35 min spent with patient and on the chart (including review of chart, obtaining history, exam, reviewing outside data, placing orders, documenting exam and treatment plan, and counseling patient) on 04/01. Quality MIPS - Admit I confirm the patient?s Advance Care Plan is present, Code status is documented, Surrogate decision maker is in patient?s record [If Yes, STOP here]: Yes MIPS - Meds 'Current medications' to include all prescriptions, [id number] products, herbals, cannabis/cannabidiol products, and vitamin/mineral/dietary (nutritional) supplements. I have utilized all available resources to obtain, update, or review the patient?s current medications. [If Yes, STOP here]: Yes
[2024-04-01 18:45] LABS: Appearance Urine UA CLEAR; Bilirubin Urine UA NEGATIVE (NEGATIVE); Color Urine UA YELLOW; Glucose Urine UA NEGATIVE (Negative); Ketones Urine UA NEGATIVE (NEGATIVE); Leukocyte Esterase Urine UA NEGATIVE (NEGATIVE); Nitrite Urine UA NEGATIVE (Negative); Occult Blood Urine UA NEGATIVE (Negative); Protein Urine UA NEGATIVE (Negative); Specific Gravity Urine UA <=1.005 (1.000-1.035); Urobilinogen Urine UA 0.2 E.U./dL (0.2)
[2024-04-01 19:07] LABS: Procalcitonin 0.034 ng/mL (<0.5)
[2024-04-01] MEDS: ALBUTEROL 2.5 MG/3 ML NEB (ADULT) INH (19:09)
[2024-04-01 19:19] LABS: NT-proBNP (BNP-Adult 18+) 167 pg/mL (<125)
[2024-04-01 19:22] LABS: Bacteria Urine None Seen; RBC Urine None Seen (0-5/HPF); Squamous Epithelial Cell Urine 0-1 /HPF (0-5/HPF); Urine Volume 10mL (spun); WBC Urine None Seen (0-5/HPF)
[2024-04-01 19:23] LABS: Culture Indicated Urine Cult Not Indicated
[2024-04-01] MEDS: DOXYCYCLINE 100 MG in SODIUM CHLORIDE 0.9% 100 ML IV (20:05)
[2024-04-01 21:33] LABS: Lactate (Lactic Acid) 5.1 mmol/L (0.7-2.1)
[2024-04-01] MEDS: SODIUM CHLORIDE 0.9% 1,000 ML 1000 ML IV (21:53)
[2024-04-01 22:25] LABS: Reflexed Lactate in 2 Hours Y
[2024-04-01] MEDS: DEXTROSE 5%-0.9% NS 1,000 ML 100 ML IV (22:50)
[2024-04-01 22:59] LABS: Lactate 2HR (Lactic Acid Rflx) 1.9 mmol/L (0.7-2.1)
[2024-04-01] MEDS: LORATADINE 10 MG TABLET PO (23:43)
[2024-04-01] MEDS: ESCITALOPRAM 10 MG TABLET 20 MG PO (23:43)
[2024-04-01] MEDS: ESCITALOPRAM 10 MG TABLET PO (23:43)
[2024-04-01] MEDS: MELATONIN 3 MG TABLET 24 MG PO (23:43)
[2024-04-01] MEDS: diphenhydrAMINE 25 MG TABLET 50 MG PO (23:44)
[2024-04-01] MEDS: methylPREDNISolone 125 MG/2 ML VIAL 60 MG IV (23:44)
[2024-04-02] VITALS (14 sets, daily range): BP systolic 119–143; BP diastolic 65–81; PULSE 78–115; RESP 17–27; TEMP 36.4–37.1; O2SAT 96–100
[2024-04-02] MEDS: ALBUTEROL 2.5 MG/3 ML NEB (ADULT) INH ×8 (00:15→22:50)
[2024-04-02] MEDS: methylPREDNISolone 125 MG/2 ML VIAL 60 MG IV ×3 (06:04→17:21)
[2024-04-02 06:48] LABS: Add Manual Diff / Slide Review NO; Basophils Absolute Auto 0 /uL (0-100); Basophils Percent Auto 0.1 % (0-2); Eosinophils Absolute Auto 0 /uL (0-450); Hematocrit 37.6 % (36-46); Hemoglobin 12.5 g/dL (12.0-16.0); Lymphocytes Absolute Auto 1100 /uL (1100-4500); Mean Corpuscular HGB Conc 33.2 % (30-36); Mean Corpuscular Hemoglobin 27.1 PG (26-34); Mean Corpuscular Volume 81.7 fL (80-100); Monocytes Absolute Auto 200 /uL (0-900); Monocytes Percent Auto 1.9 % (3-14); Neutrophils Absolute Auto 8400 /uL (1500-7000); Platelet Count 460 X10^3/uL (150-400); White Blood Cell Count 9.7 X10^3/uL (4.5-11.0)
[2024-04-02] MEDS: DOXYCYCLINE 100 MG in SODIUM CHLORIDE 0.9% 100 ML IV ×2 (07:02→18:26)
[2024-04-02 07:03] LABS: BUN Creatinine Ratio 20.4 (6-22); Blood Urea Nitrogen 11 mg/dL (7-17); Calcium 8.8 mg/dL (8.4-10.2); Carbon Dioxide 21 mmol/L (22-32); Chloride 106 mmol/L (98-107); Estimated Glomerular Filt Rate > 60 mL/min (>60); Glucose 145 mg/dL (70-100); HEMOLYSIS < 15 (0-50); Potassium 4.1 mmol/L (3.4-5.1); Sodium 134 mmol/L (137-145)
[2024-04-02] MEDS: BUDESONIDE 0.5 MG/2 ML NEB INH ×2 (08:39→19:40)
--- NOTE | 2024-04-02 10:44 | DI.RAD.S_ITS ---
PROCEDURE: XR CHEST 1V INDICATIONS: dyspnea TECHNIQUE: One view of the chest was acquired. COMPARISON: [facility], CR, XR CHEST 2V, 04/01/2024, 14:51. FINDINGS: Surgical changes and devices: None. Lungs and pleura: Lungs are clear. No pleural effusions or pneumothorax. Mediastinum: Mediastinal contours appear normal. Heart size is normal. Bones and chest wall: No suspicious bony lesions. Overlying soft tissues appear unremarkable. IMPRESSION: No acute cardiopulmonary abnormality is seen. Approved by: Derik Case M.D. on 04/02/2024 at 12:41
--- NOTE | 2024-04-02 10:44 | PM.PN.1 ---
Subjective Subjective Interval history: Subjective: She still feels quite tight, wheezy, and weak today. She also had a fever. Exam Vital Signs (past 8 hours): - 04/02/24 04:00 04/02/24 04:36 04/02/24 06:23 Temperature 97.7 F Pulse Rate 87 102 H 104 H Respiratory Rate 25 H 22 24 Blood Pressure 119/72 Pulse Oximetry 100 98 96 Oxygen Delivery Method Room Air Room Air Oxygen Flow Rate 0 0 0 Fraction of Inspired Oxygen 21 21 04/02/24 08:00 04/02/24 08:44 Temperature 98.7 F Pulse Rate 106 H Respiratory Rate 18 Blood Pressure 138/81 Pulse Oximetry 98 96 Oxygen Delivery Method Room Air Oxygen Flow Rate 0 Fraction of Inspired Oxygen Fraction of Inspired Oxygen 21 SaO2/FiO2 Ratio 457 Oxygen Delivery Method Room Air Oxygen Flow Rate 0 Narrative Exam Narrative: NAD, alert and oriented. Fluent speech. Normal rate and effort. She does have generally diminished breath sounds and air movement with some focal rhonchi in the right anterior lung. Heart is regular, no murmur gallop or rub. Abdomen is soft, non distended. Extremities are free of edema. Objective Labs 04/02/24 06:35 04/02/24 06:32 Labs: Laboratory Results - last 24 hr 04/01/24 04/01/24 04/01/24 13:56 16:25 17:33 WBC 10.2 RBC 5.07 Hgb 13.6 Hct 41.7 MCV 82.3 MCH 26.9 MCHC 32.7 RDW 14.6 Plt Count 475 H Neut % (Auto) 84.6 H Lymph % (Auto) 11.4 L [place] % (Auto) 3.8 Eos % (Auto) 0.0 L Baso % (Auto) 0.2 Neut # (Auto) 8600 H Lymph # (Auto) 1200 [place] # (Auto) 400 Eos # (Auto) 0 Baso # (Auto) 0 Sodium 138 Potassium 3.7 Chloride 106 Carbon Dioxide 16 L BUN 11 Creatinine 0.69 Estimated GFR > 60 BUN/Creatinine Ratio 15.9 Glucose 136 H Lactate 5.7 H* 5.1 H* Calcium 9.7 Total Bilirubin 0.4 AST 25 ALT 64 H Alkaline Phosphatase 82 NT-Pro-B Natriuret Pep 167 H Total Protein 7.6 Albumin 4.5 Globulin 3.1 Albumin/Globulin Ratio 1.5 Procalcitonin 0.034 Urine Color Urine Appearance Urine pH Ur Specific [place] Urine Protein Urine Glucose (UA) Urine Ketones Urine Occult Blood Urine Nitrate Urine Bilirubin Urine Urobilinogen Ur Leukocyte Esterase Urine RBC Urine WBC Ur Squamous Epith Cells Urine Bacteria Ur Culture Indicated? Vol Urine Centrifuged SARS-CoV-2 (PCR) Negative Influenza A (RT-PCR) Flu a negative Influenza B (RT-PCR) Flu b negative RSV (PCR) Negative 04/01/24 04/01/24 04/01/24 18:04 19:50 22:25 WBC RBC Hgb Hct MCV MCH MCHC RDW Plt Count Neut % (Auto) Lymph % (Auto) [place] % (Auto) Eos % (Auto) Baso % (Auto) Neut # (Auto) Lymph # (Auto) [place] # (Auto) Eos # (Auto) Baso # (Auto) Sodium Potassium Chloride Carbon Dioxide BUN Creatinine Estimated GFR BUN/Creatinine Ratio Glucose Lactate 5.1 H* 1.9 Calcium Total Bilirubin AST ALT Alkaline Phosphatase NT-Pro-B Natriuret Pep Total Protein Albumin Globulin Albumin/Globulin Ratio Procalcitonin Urine Color Yellow Urine Appearance Clear Urine pH 7.0 Ur Specific [place] <=1.005 Urine Protein Negative Urine Glucose (UA) Negative Urine Ketones Negative Urine Occult Blood Negative Urine Nitrate Negative Urine Bilirubin Negative Urine Urobilinogen 0.2 Ur Leukocyte Esterase Negative Urine RBC None seen Urine WBC None seen Ur Squamous Epith Cells 0-1 /hpf Urine Bacteria None seen Ur Culture Indicated? Cult not indicated Vol Urine Centrifuged 10ml (spun) SARS-CoV-2 (PCR) Influenza A (RT-PCR) Influenza B (RT-PCR) RSV (PCR) 04/02/24 04/02/24 06:32 06:35 WBC 9.7 RBC 4.60 Hgb 12.5 Hct 37.6 MCV 81.7 MCH 27.1 MCHC 33.2 RDW 15.0 H Plt Count 460 H Neut % (Auto) 87.0 H Lymph % (Auto) 11.0 L [place] % (Auto) 1.9 L Eos % (Auto) 0.0 L Baso % (Auto) 0.1 Neut # (Auto) 8400 H Lymph # (Auto) 1100 [place] # (Auto) 200 Eos # (Auto) 0 Baso # (Auto) 0 Sodium 134 L Potassium 4.1 Chloride 106 Carbon Dioxide 21 L BUN 11 Creatinine 0.54 Estimated GFR > 60 BUN/Creatinine Ratio 20.4 Glucose 145 H Lactate Calcium 8.8 Total Bilirubin AST ALT Alkaline Phosphatase NT-Pro-B Natriuret Pep Total Protein Albumin Globulin Albumin/Globulin Ratio Procalcitonin Urine Color Urine Appearance Urine pH Ur Specific [place] Urine Protein Urine Glucose (UA) Urine Ketones Urine Occult Blood Urine Nitrate Urine Bilirubin Urine Urobilinogen Ur Leukocyte Esterase Urine RBC Urine WBC Ur Squamous Epith Cells Urine Bacteria Ur Culture Indicated? Vol Urine Centrifuged SARS-CoV-2 (PCR) Influenza A (RT-PCR) Influenza B (RT-PCR) RSV (PCR) [facility] Medical History Asthma Social History household members: spouse and family Smoking Status: Former smoker alcohol intake: never Assessment & Plan Assessment & Plan narrative: 1. Lactic acidosis, present on admission and resolved. 2. Asthma exacerbation, present on admission and stable. 3. Probable pneumonia, present on admission and active. 4. Anxiety, stable. PLAN: -continue antibiotics, Tylenol as needed for fever. -continue corticosteroids and bronchodilators, switch to DuoNebs which is what she uses at home. -follow up blood cultures. -repeat chest x-ray. Anticipate another night of hospital care being medically necessary. LEANNA is April 03. Time-Based Coding :: [TOTAL MINUTES] spent with patient and on the chart (including review of chart, obtaining history, exam, reviewing outside data, placing orders, documenting exam and treatment plan, and counseling patient) on [DATE]. Quality VTE Deep Vein Thrombosis/Pulmonary Embolism Present on Admission: No
[2024-04-02] MEDS: ACETAMINOPHEN 325 MG TABLET 650 MG PO (11:53)
--- NOTE | 2024-04-02 12:27 | CM.DANOTE ---
DPA Note: Chart reviewed, spoke with patient at bedside. Patient is a 43 y/o F admitted with asthma exacerbation, R/O PNA, awaiting cultures and repeat chest x ray. Patient previously ind with all adls and lives at home with her family. Patient sees primary care at [facility] and has [facility]. D/C Plan: Home with no needs INÉS Addison Discharge Planning/Care Management CM Discharge Assessment Start: 04/02/24 12:26 Freq: Status: Active Protocol: Document 04/02/24 12:26 KG (Rec: 04/02/24 12:27 KG [id number]) Discharge Planning Assessment Assigned News Production Supervisor Kasia Vilchis Advance Directives? No History Provided By Patient Has Patient been admitted in last 30 No days? Prior Living Arrangements House Household Members spouse,family Type of transporation used prior to Drives own vehicle admit Independent with ADL's Yes Is patient alert and oriented? Yes Caregiver for Another No Barriers to Discharge No Referrals Initiated None needed
[2024-04-02] MEDS: PANTOPRAZOLE DR 40 MG TABLET PO (13:10)
[2024-04-02] MEDS: cefTRIAXone 1,000 MG in SODIUM CHLORIDE 0.9% 100 ML 200 MG IV (17:10)
[2024-04-02] MEDS: ALBUTEROL/IPRATROPIUM 3 ML AMPUL INH (17:57)
[2024-04-02] MEDS: LORazepam 1 MG TABLET PO (21:36)
[2024-04-02] MEDS: LORATADINE 10 MG TABLET PO (21:42)
[2024-04-02] MEDS: ESCITALOPRAM 10 MG TABLET 20 MG PO (21:42)
[2024-04-02] MEDS: ESCITALOPRAM 10 MG TABLET PO (21:42)
[2024-04-02] MEDS: diphenhydrAMINE 25 MG TABLET 50 MG PO (22:28)
[2024-04-02] MEDS: MELATONIN 3 MG TABLET 24 MG PO (22:28)
[2024-04-02] MEDS: hydrOXYzine HCL 25 MG TABLET PO (22:29)
[2024-04-03] VITALS (9 sets, daily range): BP systolic 113–131; BP diastolic 60–84; PULSE 97–118; RESP 16–24; TEMP 36.4–36.9; O2SAT 94–99
[2024-04-03] MEDS: methylPREDNISolone 125 MG/2 ML VIAL 60 MG IV ×4 (00:29→16:58)
[2024-04-03] MEDS: BUDESONIDE 0.5 MG/2 ML NEB INH ×2 (06:28→18:49)
[2024-04-03] MEDS: ALBUTEROL 2.5 MG/3 ML NEB (ADULT) INH ×5 (06:28→21:27)
[2024-04-03 06:38] LABS: Add Manual Diff / Slide Review NO; Basophils Absolute Auto 0 /uL (0-100); Basophils Percent Auto 0.2 % (0-2); Eosinophils Absolute Auto 0 /uL (0-450); Hematocrit 41.4 % (36-46); Hemoglobin 13.3 g/dL (12.0-16.0); Lymphocytes Absolute Auto 1400 /uL (1100-4500); Lymphocytes Percent Auto 7.3 % (25-40); Mean Corpuscular HGB Conc 32.1 % (30-36); Mean Corpuscular Hemoglobin 26.7 PG (26-34); Mean Corpuscular Volume 83.2 fL (80-100); Monocytes Absolute Auto 700 /uL (0-900); Monocytes Percent Auto 3.6 % (3-14); Neutrophils Absolute Auto 16900 /uL (1500-7000); Neutrophils Percent Auto 88.9 % (50-75); Platelet Count 528 X10^3/uL (150-400); Red Blood Cell Count 4.98 X10^6/uL (4.0-5.2); Red Cell Distribution Width 15.1 % (11.6-14.8); White Blood Cell Count 19.1 X10^3/uL (4.5-11.0)
[2024-04-03 07:02] LABS: BUN Creatinine Ratio 17.5 (6-22); Blood Urea Nitrogen 11 mg/dL (7-17); Calcium 9.3 mg/dL (8.4-10.2); Carbon Dioxide 21 mmol/L (22-32); Chloride 105 mmol/L (98-107); Estimated Glomerular Filt Rate > 60 mL/min (>60); Glucose 126 mg/dL (70-100); HEMOLYSIS < 15 (0-50); Sodium 139 mmol/L (137-145)
[2024-04-03] MEDS: DOXYCYCLINE 100 MG in SODIUM CHLORIDE 0.9% 100 ML IV (07:02)
[2024-04-03] MEDS: PANTOPRAZOLE DR 40 MG TABLET PO (07:02)
[2024-04-03] MEDS: ACETAMINOPHEN 325 MG TABLET 650 MG PO (08:31)
[2024-04-03] MEDS: ALBUTEROL/IPRATROPIUM 3 ML AMPUL INH (11:50)
--- NOTE | 2024-04-03 12:34 | PM.PN.1 ---
Subjective Subjective Interval history: S; slow improvement, but still very short of breath especially with walking. Slept well. Less coughing. Exam Vital Signs (past 8 hours): - 04/03/24 06:28 04/03/24 08:00 04/03/24 10:46 Temperature 98.2 F Pulse Rate 97 H 107 H 118 H Respiratory Rate 20 19 24 Blood Pressure 122/61 Pulse Oximetry 97 99 97 Oxygen Delivery Method Room Air Room Air Oxygen Flow Rate 0 0 0 Fraction of Inspired Oxygen 21 21 04/03/24 11:50 Temperature Pulse Rate 114 H Respiratory Rate 20 Blood Pressure Pulse Oximetry 97 Oxygen Delivery Method Room Air Oxygen Flow Rate Fraction of Inspired Oxygen Fraction of Inspired Oxygen 21 SaO2/FiO2 Ratio 461 Oxygen Delivery Method Room Air Oxygen Flow Rate 0 Narrative Exam Narrative: NAD, alert and oriented. Fluent speech. Lungs are improved, but still there is prolonged expiratory phase and expiratory wheezing noted. Increased effort after a short walk. Heart is regular, no murmur gallop or rub. Tachycardic. Abdomen is soft, non distended. Extremities are free of edema. Objective Labs 04/03/24 06:20 04/03/24 06:20 Labs: Laboratory Results - last 24 hr 04/03/24 06:20 WBC 19.1 H D RBC 4.98 Hgb 13.3 Hct 41.4 MCV 83.2 MCH 26.7 MCHC 32.1 RDW 15.1 H Plt Count 528 H Neut % (Auto) 88.9 H Lymph % (Auto) 7.3 L [place] % (Auto) 3.6 Eos % (Auto) 0.0 L Baso % (Auto) 0.2 Neut # (Auto) 81014 H Lymph # (Auto) 1400 [place] # (Auto) 700 Eos # (Auto) 0 Baso # (Auto) 0 Sodium 139 Potassium 4.0 Chloride 105 Carbon Dioxide 21 L BUN 11 Creatinine 0.63 Estimated GFR > 60 BUN/Creatinine Ratio 17.5 Glucose 126 H Calcium 9.3 PFSH Medical History Asthma Social History household members: spouse and family Smoking Status: Former smoker alcohol intake: never Assessment & Plan Assessment & Plan narrative: 1. Lactic acidosis, present on admission and resolved. 2. Asthma exacerbation, present on admission and stable. 3. Probable pneumonia, present on admission and active. 4. Anxiety, stable. PLAN: -continue antibiotics, we will change doxy to oral. -continue IV steroids and bronchodilators. She was still relatively symptomatic and not stable enough for discharge. She requires another night of monitoring of her asthma exacerbation and treatment of pneumonia. LEANNA is April 04. Time-Based Coding :: [TOTAL MINUTES] spent with patient and on the chart (including review of chart, obtaining history, exam, reviewing outside data, placing orders, documenting exam and treatment plan, and counseling patient) on [DATE]. Quality VTE Deep Vein Thrombosis/Pulmonary Embolism Present on Admission: No
--- NOTE | 2024-04-03 12:55 | CM.DPC ---
Addendum entered and electronically signed by INÉS Chandler 04/03/24 13:46: D/C date has changed to 04/03/24. Original Note: DCP Cont. Reviewed EMR and team rounds for status updates. Pt has been medically cleared for home d/c today, family will transport her home. No further CM needs are indicated at this time.
[2024-04-03] MEDS: cefTRIAXone 1,000 MG in SODIUM CHLORIDE 0.9% 100 ML 200 MG IV (16:59)
[2024-04-03] MEDS: MELATONIN 3 MG TABLET 24 MG PO (21:21)
[2024-04-03] MEDS: ESCITALOPRAM 10 MG TABLET PO (21:21)
[2024-04-03] MEDS: DOXYCYCLINE HYCLATE 100 MG TABLET PO (21:22)
[2024-04-03] MEDS: diphenhydrAMINE 25 MG TABLET 50 MG PO (21:22)
[2024-04-03] MEDS: LORATADINE 10 MG TABLET PO (21:22)
[2024-04-03] MEDS: hydrOXYzine HCL 25 MG TABLET PO (21:22)
[2024-04-03] MEDS: ESCITALOPRAM 10 MG TABLET 20 MG PO (21:22)
[2024-04-04] VITALS (7 sets, daily range): BP systolic 118–138; BP diastolic 69–80; PULSE 81–104; RESP 16–22; TEMP 36.1–36.8; O2SAT 94–99
[2024-04-04] MEDS: methylPREDNISolone 125 MG/2 ML VIAL 60 MG IV ×3 (00:21→11:20)
[2024-04-04] MEDS: ALBUTEROL 2.5 MG/3 ML NEB (ADULT) INH ×4 (05:50→16:08)
[2024-04-04] MEDS: BUDESONIDE 0.5 MG/2 ML NEB INH (07:44)
[2024-04-04] MEDS: PANTOPRAZOLE DR 40 MG TABLET PO (08:00)
[2024-04-04] MEDS: DOXYCYCLINE HYCLATE 100 MG TABLET PO (08:17)
--- NOTE | 2024-04-04 10:19 | CM.DPC ---
DCP Continued: Reviewed EMR and team rounds for pt?s medical status. Per Provider, pt has been switched from IV abx to PO. No new discharge needs identified at this time. Plan: Anticipating discharge home with family when medically stable. CM Team will continue to follow for coordination of discharge plans. KATHIA [place]
--- NOTE | 2024-04-04 11:12 | PM.PN.1 ---
Subjective Subjective Interval history: Summary: 43-year-old female with history of asthma admitted with possible pneumonia and asthma exacerbation. Slow improvement. She has been reluctant to go home because of persistent dyspnea with exertion. We are targeting April 05. Subjective: She still feel short of breath, slightly improved. She was a dry cough and gurgling in the right mid lung. She was still wheezing. Exam Vital Signs (past 8 hours): - 04/04/24 06:00 04/04/24 07:42 04/04/24 08:00 Temperature 97.8 F 98.2 F Pulse Rate 81 102 H 97 H Respiratory Rate 22 20 19 Blood Pressure 132/80 136/74 Pulse Oximetry 99 97 99 Oxygen Delivery Method Room Air Oxygen Flow Rate 0 Fraction of Inspired Oxygen 21 SaO2/FiO2 Ratio 461 Oxygen Delivery Method Room Air Oxygen Flow Rate 0 Narrative Exam Narrative: NAD, fluent speech, slightly dyspneic when talking. She appears anxious Lungs are notable for rhonchi which are focal in the right mid lung as well as expiratory wheezing which are scattered and slight tachypnea. Heart is regular, no murmur. Abdomen is soft, nondistended. No leg or foot edema. Objective Imaging Chest x-ray: Radiologist's impression: No acute cardiopulmonary abnormality is seen. CT scan - chest: Radiologist's impression: No pulmonary embolus. No acute cardiopulmonary process. Labs 04/03/24 06:20 04/03/24 06:20 [facility] Medical History Asthma Social History household members: spouse and family Smoking Status: Former smoker alcohol intake: never Assessment & Plan Assessment & Plan narrative: 1. Lactic acidosis, present on admission and resolved. 2. Asthma exacerbation, present on admission and slowly improving. 3. Probable pneumonia, present on admission and improving. 4. Anxiety, stable. PLAN: -continue antibiotics, we will change doxy to oral. -continue IV steroids and bronchodilators. She was still relatively symptomatic and not stable enough for discharge. She requires another night of monitoring of her asthma exacerbation and treatment of pneumonia. LEANNA is April 05. Time-Based Coding :: [TOTAL MINUTES] spent with patient and on the chart (including review of chart, obtaining history, exam, reviewing outside data, placing orders, documenting exam and treatment plan, and counseling patient) on [DATE]. Quality VTE Deep Vein Thrombosis/Pulmonary Embolism Present on Admission: No
[2024-04-04] MEDS: ACETAMINOPHEN 325 MG TABLET 650 MG PO (14:25)
--- NOTE | 2024-04-04 16:31 | PM.DS.1 ---
History of Present Illness History of Present Illness Chief complaint: pneumonia, sob Narrative: The patient is a 43 year old female with a history of asthma. She was multiple exacerbations year which usually are secondary to pneumonia. She has been ill for about 5 days with cough and progressive dyspnea and wheezing. She notes that initial chest x-ray frequently miss her pneumonia but that it will show up after IV hydration. She has been fatigued and dyspneic with exertion. She also is shaky from bronchodilators in the emergency department. She was never been intubated or required positive pressure ventilation. Her respiratory PCR was negative. In the ED, she was found to have a lactic acidosis. She was given some fluid. Blood cultures were taken and she was given IV antibiotics. A urine was unremarkable and her chest x-ray was negative for infiltrate. She notes her breathing is very tight and she does hear some grunting and expiratory wheezing from her right lung more than left. No nausea, vomiting or diarrhea. No fevers, or chills. Discharge Providers Provider Date of admission: 04/01/24 18:29 Discharge Date: 04/04/24 Primary care physician: Kemi CARPENTER Provider Consults: 04/01/24 18:50 Consult to Cardio/Pulmonary Rehabilitation Routine Comment: Physician Instructions: Evaluate and treat Discharge provider: Federico Mejias MD Summary Hospital Course Discharge Diagnosis: 1. Lactic acidosis, present on admission and resolved. 2. Asthma exacerbation, present on admission and improved. 3. Probable pneumonia, present on admission and improved. 4. Anxiety, stable. Hospital Course: She was admitted with a possible pneumonia and asthma exacerbation. She was treated with antibiotics, steroids, and bronchodilators. She improved sequentially over the next 2 days. In the day of discharge she was felt to be stable for discharge. She was off from oxygen. She was given at Ativan as needed for anxiety and we will be given a small supply to go home with. Status at Discharge Cognitive/behavioral status at discharge: oriented Functional status at discharge: independent ambulation Overall status at discharge: patient is back to baseline Time Spent with Patient Time spent: Greater than 30 minutes Exam Vital Signs (past 8 hours): - 04/04/24 11:07 04/04/24 12:00 04/04/24 16:08 Temperature 98.3 F Pulse Rate 104 H 100 H 98 H Respiratory Rate 20 16 20 Blood Pressure 138/76 Pulse Oximetry 97 94 96 Oxygen Delivery Method Room Air Room Air Oxygen Flow Rate 0 Fraction of Inspired Oxygen 21 SaO2/FiO2 Ratio 461 Oxygen Delivery Method Room Air Oxygen Flow Rate 0 Narrative Exam Narrative: NAD, alert and oriented. Fluent speech. Lungs are clear, normal rate and effort. Some focal rhonchi in the right midlung. Heart is regular, no murmur gallop or rub. Abdomen is soft, non distended. Extremities are free of edema. Objective Imaging Multiple studies:: Radiologist's impression: Chest x-ray: No acute cardiopulmonary abnormality is seen. Chest CT: No pulmonary embolus. No acute cardiopulmonary process. Labs 04/03/24 06:20 04/03/24 06:20 [facility] Medical History Asthma Social History household members: spouse and family Smoking Status: Former smoker alcohol intake: never Discharge Assessment & Plan Assessment and Plan Assessment: 1. Lactic acidosis, present on admission and resolved. 2. Asthma exacerbation, present on admission and improved. 3. Probable pneumonia, present on admission and improved. 4. Anxiety, stable. Plan of Treatment: Discharge home, 4 more days of antibiotics and prednisone. Bronchodilators as needed. A small supply of Ativan as also given for anxiety. Discharge Plan Discharge Plan Patient Disposition: Home Provider Discharge Comment: Improved enough to discharge home. Discharge orders & Medications Prescriptions: New prednisone 50 mg tablet 50 mg PO DAILY Qty: 4 0RF cefdinir 300 mg capsule 300 mg PO BID Qty: 8 0RF lorazepam [Ativan] 1 mg tablet 1 mg PO BID PRN (Reason: anxiety) Qty: 14 0RF Continued ipratropium-albuterol 0.5 mg-3 mg(2.5 mg base)/3 mL solution for nebulization 3 ml inhalation Q4H PRN (Reason: shortness of breath or wheezing) Qty: 180 1RF cetirizine 5 mg Tablet 5 mg PO BEDTIME diphenhydramine HCl [Benadryl] 25 mg Capsule 50 mg PO BEDTIME omeprazole 20 mg Capsule,Delayed Release(Dr/Ec) 20 mg PO DAILY hydroxyzine HCl 25 mg tablet 25 mg PO 4XD PRN (Reason: Anxiety) escitalopram oxalate 10 mg tablet 10 mg PO BEDTIME Rx Instructions: takes with a 20mg (30mg total) escitalopram oxalate 20 mg tablet 20 mg PO BEDTIME Rx Instructions: takes with a 10mg for 30mg total melatonin 12 mg Tablet 24 mg PO BEDTIME fluticasone propion-salmeterol [Wixela Inhub] 250-50 mcg/dose blister with device 1 inh inhalation BID Discontinued prednisone 20 mg tablet 40 mg PO DAILY Qty: 14 0RF Follow up/Referrals: Kemi Marin [Primary Care Provider] - Discharge Health Status Multidrug resistant organism: No MDRO Diet/Activity/Treatments Diet: Regular Skin/Wound/Dressing Care Report to your healthcare provider any signs of infection, such as:: chills, fever Visit Report/Discharge Packet Instructions: DI for Asthma -- Adult Stand Alone Forms: Patient Portal/API Discharge Data Primary Care Provider: Kemi Marin Attending Provider: Federico Mejias Admit Date/Time: 04/01/24 18:29 Quality VTE Deep Vein Thrombosis/Pulmonary Embolism Present on Admission: No
--- NOTE | 2024-04-04 18:43 | PC.NURSE ---
Patient is cleared for discharge home this afternoon. VSS, afebrile on RA. She has a productive cough and course lungsounds throughout with some expiratory wheezes. Activity tolerance has improved today and she is able to walk around the nurse's station. She is transitioned to oral doxycycline. She appears to be less anxious with dose of ativan given this afternoon, and reduced SOB. MD at bedside with patient and spouse discussing plan of care, and treatment. She expresses that she feels comfortable to discharge home tonight with nebs, antibiotic, steroid and prn ativan. She verbalizes understanding of medications, worsening symptoms and increasing activity as tolerated. She is escorted with all of her belongings via w/ch to private vehicle with spouse and daughter for discharge home this evening at 1808
--- NOTE | 2024-04-07 12:49 | PC.NURSE ---
Late entry. Prior to discharge patient medicated with po 0.5mg ativan at 1640 on 04/04/2024.
== END 2024-04-04 18:08 | disposition home or self-care (01) ==
LOC: ED 18:23 → AC 18:29
PROVIDERS: Admitting Provider Hospitalist; Emergency Provider Emergency Medicine; Visit Provider Hospitalist
DX: J45.901 Unspecified asthma with (acute) exacerbation (principal); E87.20 Acidosis, unspecified; F41.9 Anxiety disorder, unspecified; Z87.891 Personal history of nicotine dependence; Z11.52 Encounter for screening for COVID-19
CPT/HCPCS: 0241U; 36415; 71045; 71046; 71275; 80048; 80053; 81001; 83605; 83880; 84145; 85025; 87040; 94640; 94762; 96361; 96365; 96366; 96367; 96375; 96376; 99284; G0378; A9270; J0696; J2919; J7613; Q9967